=== PATIENT | male | born 1970 | race Asian ===

== ENCOUNTER → 2020-06-16 09:04 | Outpatient (BNVA) | payer BC, SELFPAY | PROVIDERS: Visit Provider Internal Medicine Gastroenterology | DX: Z76.89 Persons encountering health services in other specified circumstances (principal) ==

== ENCOUNTER → 2020-11-03 09:00 | Outpatient (BNVA) | payer BC, SELFPAY | PROVIDERS: Visit Provider Internal Medicine Gastroenterology ==

== ENCOUNTER → 2021-02-09 08:16 | Outpatient (BNVA) | payer BC, SELFPAY | PROVIDERS: Visit Provider Internal Medicine Gastroenterology ==

== ENCOUNTER 2021-05-19 10:35 | Outpatient (REF) | payer BC, SELFPAY ==
[2021-05-24 02:20] LABS: Calprotectin, Fecal 246 mcg/g
== END 2021-05-19 10:36 | disposition home or self-care (01) ==
LOC: HO.LNP 10:35
PROVIDERS: Visit Provider Internal Medicine Gastroenterology
DX: K52.9 Noninfective gastroenteritis and colitis, unspecified (principal)
CPT/HCPCS: 83993

== ENCOUNTER 2021-08-17 07:30 | Outpatient (REF) | payer BC, SELFPAY ==
[2021-08-17 07:48] LABS: MANUAL DIFF FLAG NO
[2021-08-17 08:38] LABS: Basophils Percent Auto 0.7 % (0-2); Eosinophils Absolute Auto 0.3 X10*3/uL (0.0-0.4); Eosinophils Percent Auto 4.9 % (0-4); Hematocrit 45.7 % (42.0-52.0); Hemoglobin 14.8 g/dl (14.0-18.0); Imm Gran Abs Auto 0.02 X10*3/uL (0.00-0.03); Imm Gran Pct Auto 0.3 % (0.0-0.4); Lymphocytes Percent Auto 34.3 % (20-40); Mean Corpuscular HGB Conc 32.4 g/dl (31.0-36.0); Mean Corpuscular Hemoglobin 26.9 pg (27.0-33.0); Mean Corpuscular Volume 82.9 fL (80.0-98.0); Mean Platelet Volume 10.3 fL (9.4-12.4); Monocytes Absolute Auto 0.8 X10*3/uL (0.1-1.2); Monocytes Percent Auto 12.9 % (2-11); Neutrophils Absolute Auto 2.8 x10*3/uL (2.0-8.3); Neutrophils Percent Auto 46.9 % (45-73); Platelet Count 236 X10*3/uL (160-400); Red Blood Count 5.51 X10*6/uL (4.60-5.80); Red Cell Distribution Width 12.4 % (11.0-16.0)
[2021-08-17 09:01] LABS: Alanine Aminotransferase 57 U/L (0-40); Albumin Level 4.4 g/dL (3.5-5.0); Alkaline Phosphatase 102 U/L (39-117); Aspartate Amino Transferase 34 U/L (5-37); Bilirubin Direct 0.3 mg/dL (0.0-0.5); Bilirubin Total 0.7 mg/dL (0.0-1.0); Estimated Glomerular Filt Rate > 60; Total Protein 7.8 g/dL (6.5-8.0)
== END 2021-08-17 07:31 | disposition home or self-care (01) ==
LOC: HO.LAB 07:30
PROVIDERS: Visit Provider Internal Medicine Gastroenterology
DX: K52.9 Noninfective gastroenteritis and colitis, unspecified (principal)
CPT/HCPCS: 36415; 80076; 82565; 85025

== ENCOUNTER 2021-11-17 09:55 | Outpatient (REF) | payer BC, SELFPAY ==
[2021-11-17 11:16] LABS: Alanine Aminotransferase 52 U/L (0-40); Albumin Level 4.4 g/dL (3.5-5.0); Alkaline Phosphatase 109 U/L (39-117); Aspartate Amino Transferase 29 U/L (5-37); Bilirubin Direct 0.2 mg/dL (0.0-0.5); Bilirubin Total 0.6 mg/dL (0.0-1.0); Total Protein 7.7 g/dL (6.5-8.0)
[2021-11-17 11:40] LABS: Vitamin D 25-OH Total 41.4 ng/mL (>30)
== END 2021-11-17 09:56 | disposition home or self-care (01) ==
LOC: HO.LAB 09:55
PROVIDERS: Visit Provider Internal Medicine Gastroenterology
DX: K52.9 Noninfective gastroenteritis and colitis, unspecified (principal)
CPT/HCPCS: 36415; 80076; 82306

== ENCOUNTER 2022-02-19 11:33 | Outpatient (REF) | payer BC, SELFPAY ==
[2022-02-19 11:57] LABS: Hematocrit 46.5 % (42.0-52.0); Hemoglobin 15.1 g/dl (14.0-18.0); Mean Corpuscular HGB Conc 32.5 g/dl (31.0-36.0); Mean Corpuscular Hemoglobin 26.5 pg (27.0-33.0); Mean Corpuscular Volume 81.7 fL (80.0-98.0); Mean Platelet Volume 9.8 fL (9.4-12.4); Platelet Count 264 X10*3/uL (160-400); Red Blood Count 5.69 X10*6/uL (4.60-5.80); Red Cell Distribution Width 12.3 % (11.0-16.0); White Blood Count 7.1 X10*3/uL (4.8-10.8)
[2022-02-19 12:37] LABS: Alanine Aminotransferase 38 U/L (0-40); Albumin Level 4.6 g/dL (3.5-5.0); Alkaline Phosphatase 97 U/L (39-117); Aspartate Amino Transferase 22 U/L (5-37); Bilirubin Direct 0.2 mg/dL (0.0-0.5); Bilirubin Total 0.7 mg/dL (0.0-1.0)
== END 2022-02-19 11:34 | disposition home or self-care (01) ==
LOC: HO.LAB 11:33
PROVIDERS: Visit Provider Internal Medicine Gastroenterology
DX: K52.9 Noninfective gastroenteritis and colitis, unspecified (principal)
CPT/HCPCS: 36415; 80076; 85027

== ENCOUNTER 2022-08-08 14:00 | Outpatient (REF) | payer BC, SELFPAY ==
[2022-08-08 14:42] LABS: Hematocrit 45.7 % (42.0-52.0); Hemoglobin 15.2 g/dl (14.0-18.0); Mean Corpuscular HGB Conc 33.3 g/dl (31.0-36.0); Mean Corpuscular Hemoglobin 26.8 pg (27.0-33.0); Mean Corpuscular Volume 80.6 fL (80.0-98.0); Mean Platelet Volume 10.3 fL (9.4-12.4); Platelet Count 257 X10*3/uL (160-400); Red Blood Count 5.67 X10*6/uL (4.60-5.80); Red Cell Distribution Width 12.4 % (11.0-16.0); White Blood Count 6.1 X10*3/uL (4.8-10.8)
[2022-08-08 15:28] LABS: Alanine Aminotransferase 76 U/L (0-40); Albumin Level 4.5 g/dL (3.5-5.0); Alkaline Phosphatase 110 U/L (39-117); Aspartate Amino Transferase 39 U/L (5-37); Bilirubin Direct 0.3 mg/dL (0.0-0.5); Estimated Glomerular Filt Rate > 60; Total Protein 7.6 g/dL (6.5-8.0)
[2022-08-08 15:53] LABS: Folate > 20.0 ng/mL (> or = 4.0); Vitamin B12 > 2000 pg/mL (200-900)
== END 2022-08-08 14:01 | disposition home or self-care (01) ==
LOC: HO.LAB 14:00
PROVIDERS: Visit Provider Internal Medicine Gastroenterology
DX: K21.9 Gastro-esophageal reflux disease without esophagitis (principal); K52.9 Noninfective gastroenteritis and colitis, unspecified
CPT/HCPCS: 36415; 80076; 82565; 82607; 82746; 85027

== ENCOUNTER → 2022-08-17 09:44 | Outpatient (BNVA) | payer BC, SELFPAY | PROVIDERS: Visit Provider Internal Medicine Gastroenterology | DX: Z13.89 Encounter for screening for other disorder (principal) ==

== ENCOUNTER 2022-09-11 10:42 | Outpatient (REF) | payer BC, SELFPAY ==
[2022-09-11 12:10] LABS: Alanine Aminotransferase 78 U/L (0-40); Albumin Level 4.7 g/dL (3.5-5.0); Alkaline Phosphatase 111 U/L (39-117); Aspartate Amino Transferase 38 U/L (5-37); Bilirubin Direct < 0.2 mg/dL (0.0-0.5); Bilirubin Total 0.8 mg/dL (0.0-1.0)
== END 2022-09-11 10:43 | disposition home or self-care (01) ==
LOC: HO.LAB 10:42
PROVIDERS: Visit Provider Internal Medicine Gastroenterology
DX: K52.9 Noninfective gastroenteritis and colitis, unspecified (principal); R79.89 Other specified abnormal findings of blood chemistry
CPT/HCPCS: 36415; 80076

== ENCOUNTER 2022-11-08 09:10 | Outpatient (REF) | payer BC, SELFPAY ==
[2022-11-08 10:37] LABS: Alanine Aminotransferase 41 U/L (0-40); Albumin Level 4.3 g/dL (3.5-5.0); Alkaline Phosphatase 85 U/L (39-117); Aspartate Amino Transferase 25 U/L (5-37); Bilirubin Direct 0.2 mg/dL (0.0-0.5); Bilirubin Total 0.6 mg/dL (0.0-1.0); Total Protein 7.4 g/dL (6.5-8.0)
[2022-11-15 21:44] LABS: Calprotectin, Fecal 7 mcg/g
== END 2022-11-08 09:11 | disposition home or self-care (01) ==
LOC: HO.LAB 09:10
PROVIDERS: Visit Provider Internal Medicine Gastroenterology
DX: K52.9 Noninfective gastroenteritis and colitis, unspecified (principal); R79.89 Other specified abnormal findings of blood chemistry
CPT/HCPCS: 36415; 80076; 83993

== ENCOUNTER → 2022-12-27 08:57 | Outpatient (BNVA) | payer BC, SELFPAY | PROVIDERS: Visit Provider Internal Medicine Gastroenterology ==

== ENCOUNTER 2023-06-05 13:40 | Outpatient (REF) | payer BC, SELFPAY ==
[2023-06-05 14:16] LABS: Hematocrit 45.5 % (42.0-52.0); Hemoglobin 14.8 g/dl (14.0-18.0); Mean Corpuscular HGB Conc 32.5 g/dl (31.0-36.0); Mean Corpuscular Hemoglobin 26.6 pg (27.0-33.0); Mean Corpuscular Volume 81.7 fL (80.0-98.0); Platelet Count 250 X10*3/uL (160-400); Red Blood Count 5.57 X10*6/uL (4.60-5.80); Red Cell Distribution Width 12.4 % (11.0-16.0); White Blood Count 5.9 X10*3/uL (4.8-10.8)
[2023-06-05 14:48] LABS: Alanine Aminotransferase 42 U/L (0-40); Albumin Level 4.3 g/dL (3.5-5.0); Alkaline Phosphatase 94 U/L (39-117); Aspartate Amino Transferase 25 U/L (5-37); Bilirubin Direct 0.1 mg/dL (0.0-0.5); Bilirubin Total 0.5 mg/dL (0.0-1.0); Blood Urea Nitrogen 11 mg/dL (9-16); Estimated Glomerular Filt Rate > 60; Total Protein 7.8 g/dL (6.5-8.0)
== END 2023-06-05 13:41 | disposition home or self-care (01) ==
LOC: HO.LAB 13:40
PROVIDERS: Visit Provider Internal Medicine Gastroenterology
DX: K52.9 Noninfective gastroenteritis and colitis, unspecified (principal)
CPT/HCPCS: 36415; 80076; 82565; 84520; 85027

== ENCOUNTER 2023-06-13 09:31 | Outpatient (AMB) | payer BC, SELFPAY ==
--- NOTE | 2023-06-13 09:34 | A.OFFVIS_ITS ---
Intake Vital Signs 06/13/23 09:45 Height 5 ft 4 in Weight 132 lb BMI 22.7 BP 112/58 L Blood Pressure Location Lt brachial Position Sitting Pulse 70 Intake Visit Reasons: 6 month follow up Intake Note: Patient follow up for Elevated FLTs Patient cc: abdominal pain more on the left side. Denies any other GI issues. Hand Grinder Required: No Accompanied by: Self / Same As Patient Allergies No Known Allergies Allergy (Verified 06/13/23 09:41) Medication List - Last Reconciled 06/13/23 by Madiha Mercer MD albuterol sulfate 90 mcg/actuation 2 puffs inhalation Q6H PRN atorvastatin 10 mg PO DAILY cholecalciferol (vitamin D3) 50 mcg PO DAILY cyclobenzaprine 5 - 10 mg PO BEDTIME PRN fluticasone propionate 50 mcg/actuation sprays intranasal hydroxyzine HCl 10 mg PO TID PRN Lactobacillus acidophilus (Acidophilus chewable tablet) 1 tab PO DAILY meclizine 25 mg PO TID PRN melatonin 3 mg PO BEDTIME PRN mesalamine 4.8 grams (4 x 1.2 gram) PO DAILY 90 days rye grass extract-quercetin 500-250 mg (Prostate PQ) tabs PO HPI 6 month follow up HPI Details GI clinic visit for this 52-year-old male for FU of IBD and elevated LFTs. ?LABS:? From [facility] were reviewed: ? 06/14/20 WBC 6.2, HEMOGLOBIN 15.1, HEMATOCRIT 45.1 PLATELETS 242 ? BUN 14, CREATININE 1.09, ALBUMIN 4.1, BILIRUBIN 0.5, ALKALINE PHOSPHATASE 112, AST 37, ALT SLIGHTLY ELEVATED AT 57 (56 IN 07/20) ? LABS IN [facility]: 07/08/19 reviewed ? ESR and CRP have been negative in the past. ? Stool was negative for C diff antigen. ?ENDOSCOPIC STUDIES: NOVEMBER 2018 COLONOSCOPY SHOWED: ? Patchy erythema with aphthoid ulcers in the cecum, TC and distal rectum - likely resolving colitis. ? Biopsies obtained as mentioned above. Since patient has patchy inflammation, he ? likely has Crohn's disease versus partially treated UC. ? A few aphthoid ulcers in the TI likely back wash ileitis evrsus Crohn's disease ? - biopsied. ? Moderate hemorrhoids on retroflexed exam. ? Plan: ? Await pathology results ? Change Asacol to Lialda 4.8 gms once daily ? Patient has an appointment on 12/26/18 in the GI Clinic with Madiha Mercer M.D. ? Start surveillance colonoscopy for colorectal cancer screening in 5 years if no dysplasia on biopsies. ? A. Small bowel, biopsy: Focal active ileitis; no chronic injury seen. ? B. Colon, cecum, biopsy: Chronic, mildly active, colitis. ? C. Colon, ascending, biopsy: Colonic mucosa within normal limits. ? D. Colon, left, biopsy: Colonic mucosa within normal limits. 07/23/2017: Colonoscopy report from [facility] (in the? [place]) was reviewed: ?Focal ulceration at the terminal ileum.? Diffusely edematous mucosa with multiple mucosal breaks with exudates was noted? in the cecum and 40 cms from the anal verge down to the? rectum. ?Hemorrhoida vessels above the dentate line were? engorged. ?Biopsies from TI showed Acute and chronic ileitis with focal? area suspicious for granulomatous inflammation. ?Biopsies from the? colon showed chronic non-specific colitis. ?Stool test was negative for? O & P and positive for ABC and occult blood. ?TODAY'S VISIT Patient cc: abdominal pain more on the left side. Denies any other GI issues. Had dizziness and chest pain Evaluated by a stress test which was negative Still has intermittent chest pain which resolves after he eats Taking atorvastatin, mesalamine and supplements Notes intermittent LLQ pain, has left abd discomfort when he moves his left leg. Has a soft BM daily. Notes some blood once in a while if he eats something spicy Taking Mesalamine 2 cap in the morning and one at night PAST VISIT: Pt denies diarrhea. Taking mesalamine 2 tab in the am and one tab at bedtime Sometimes he feels pain when he is hungry. He had some food with coconut milk and stomach did not feel good (did not have diarrhea) he notes some pain on the left side when he twists his body and pt was reassured that it is likely muscular pain. Stool is yellow, soft and formed and has one BM daily in the morning. Not taking TUMS for acid reflux. Had one episode when he did not have a BM x 1 day. Had a loose BM the following day. Doing good. Sometimes has a burning pain on the left side. Taking melatonin at bedtime to help him sleep at night. Stopped diphenhydramine due to increase in blood pressure Feels Ok without diarrhea or constipation. Has a soft BM one to 2 times a days. 01/29/22 he felt dizzy after lifting a hea vy pipe. He was seen at [facility] and being evaluated by Neurology specializing in dizziness (has an appt in May, 2022) Seen by ENT and diagnosed with a balance problem Has an appt with PT on 03/07/22 He was on leave and returned to work today. Taking Vitamin D 2000 units daily. Has been taking Mesalamine 4 tablets daily since earlier this year. Taking a MVI prescribed by the urologist. Doing good. Feels pain if he is hungry. Sometimes takes TUMs for acid Denies diarrhea or constipation. Sometimes feels hungry and feels his stomach is boiling. Taking Mesalamine 4 tab daily x past 4 months. Had dizziness a few days ago and had a low blood pressure. January, - He was Hospitalized at [facility] ([place]) with dizziness. Evaluated with a CT scan and MRI x 2 and diagnosed with Migraine MCDONNELL's Under increased stress since he bought a house and & daughter moved to the from the [facility]. Taking 4 tablets of Lialda daily and having one BM a day without blood. Dizziness attributed to eye problems. Stopped taking Vitamin D since he is taking an MVI with Vitamin D Taking Lialda every other day for the past 3 months and doing well - feels normal. Avoiding spicy foods. Feels a little pain if he is hungry Having one BM daily. Had COVID vaccine ([employer]) a few? days ago ?Patient cc: abdominal pain on and off, dizziness and pain on back of his head. Denies any other GI symptoms. ? Has a BM when he wakes up. ? Has breakfast followed by another BM, then Ok the rest of the day. ? Notes abdominal pain only when he is hungry and eats a little bit late. ? Is fine after he eats some bread. ? Notes some rectal bleeding after he took aspirin - attributes to hemorrhoids. ? Has intermittent elevation of blood pressure (140/93) ? Seen in the ER yesterday with neurological symptoms - normal EKG and?MRI [facility] Medical History IBD (inflammatory bowel disease) Surgical History History of colonoscopy Family History Father No problems noted. Mother Family history of high blood pressure Social History Alcohol intake: never Review of Systems Const All systems reviewed & are unremarkable except as noted in HPI and below Physical Exam Vital Signs: Last Vital Signs Pulse 70 06/13/23 09:45 BP 112/58 L 06/13/23 09:45 BMI result Body Mass Index 22.7 Const General: healthy appearing and no acute distress Nutritional Appearance: average body habitus Orientation/consciousness: patient oriented x3 Limitations: no limitations HEENT Head: Yes normal to inspection Ears: hearing grossly normal bilaterally Eyes Sclerae: sclerae normal Pupils: Equal, round and reactive pupils present Neck Neck: Yes normal visual inspection Chest Chest palpation & inspection: normal inspection of the chest Resp Effort & Inspection: normal respiratory effort Auscultation: clear to auscultation bilaterally Cardio Palpation: normal PMI Rate: regular rate Rhythm: regular rhythm Heart sounds: S1 normal heart sound present, S2 normal heart sound present and no murmurs GI Palpation (GI): Soft to palpation, nontender and No hepatosplenomegaly present Auscultation: normal bowel sounds Rectal Exam - Male: Yes deferred Skin General skin exam: no rashes or lesions noted Neuro General: patient oriented x3, gait normal and moves all extremities Cranial nerves: Yes Equal, round and reactive pupils present Psych Appearance: grossly normal Mental Status: mental status grossly normal Assessment & Plan Assessment & Plan (1) Elevated LFTs: Code(s): R79.89 - Other specified abnormal findings of blood chemistry (2) GERD (gastroesophageal reflux disease): Code(s): K21.9 - Gastro-esophageal reflux disease without esophagitis (3) IBD (inflammatory bowel disease): Code(s): K52.9 - Noninfective gastroenteritis and colitis, unspecified (4) Left sided abdominal pain: Code(s): R10.9 - Unspecified abdominal pain Plan 52 year old [place] male with GERD and asthma diagnosed with colitis on colonoscopy in Jul, 2017 in the [facility]. Patient notes improvement in his symptoms with Mesalamine and prednisone and recurrent pain and diarrhea when he stops these medications. Colonoscopy in 11/2018 showed patchy inflammation of the TI, cecum and left colon and distal rectum suggestive of Crohn's disease versus partially treated UC with backwash ileitis. Biopsies showed Focal active ileitis; no chronic injury seen and chronic, mildly active, colitis without granulomas. Labs revealed normal sed rate and CRP. Fecal calprotectin was elevated at 135.8. IBD serologies were not consistent with IBD. Pt notes association of abdominal pain with stress suggesting he may have associated IBS. Pt was switched to high dose Lialda 4.8 grams daily(due to coverage issues for Asacol) with improvement in symptoms of colitis. Patient had tachycardia, palpitations and elevated LFTs felt to be due to high- dose Lialda and dose was decreased. He was advised to start azathioprine 50 mg once a day and did not start taking it due to concern for side effects. He notes improvement in his symptoms and resolution of diarrhea and rectal bleeding. He complains of headache and dizziness, which resolved after he decreased Lialda to one tablet a day - MCDONNELL due to Migraine & dizziness due to eye problems. He changed his diet and is taking a healthier diet with avocados and bananas. Being worked up for dizziness. Pt is taking Lialda 4 tablets daily at present and labs showed slightly elevated transaminases. 08/17/22 He was advised to decrease dose to Lialda to 3 tablets daily and Repeat Labs in 1?month . 12/27/22 Pt advised to continue on Lialda 2 tablets in the morning and 1 at night and have repeat labs in 6 months 06/13/23 Notes some blood once in a while if he eats something spicy Taking Mesalamine 2 cap in the morning and one at night FU clinic or TV appt in 6 months.? Orders: Orders Vitamin B12 06/13/23 K52.9 - Noninfective gastroenteritis and colitis, unspecified Liver Panel 06/13/23 K52.9 - Noninfective gastroenteritis and colitis, unspecified C Reactive Protein 06/13/23 K52.9 - Noninfective gastroenteritis and colitis, unspecified Complete Blood Count Auto Diff 06/13/23 K52.9 - Noninfective gastroenteritis and colitis, unspecified Vitamin D 25-OH Total 06/13/23 K52.9 - Noninfective gastroenteritis and colitis, unspecified Medications: New dicyclomine 20 mg PO TID 30 days PRN 30 tabs 2RF intermittent abdominal pain R10.9 - Unspecified abdominal pain, R79.89 - Other specified abnormal findings of blood chemistry Coding Level of Care Code Est Pt Level 4 (11158) Diagnoses Elevated LFTs R79.89 GERD (gastroesophageal reflux disease) K21.9 IBD (inflammatory bowel disease) K52.9 Left sided abdominal pain R10.9 Time Spent (min) 28
[2023-06-13 09:45] VITALS: BP 112/58; PULSE 70; BMI 22.7
== END 2023-06-13 10:21 | disposition home or self-care (01) ==
PROVIDERS: Visit Provider Internal Medicine Gastroenterology
DX: R79.89 Other specified abnormal findings of blood chemistry (principal); K21.9 Gastro-esophageal reflux disease without esophagitis; K52.9 Noninfective gastroenteritis and colitis, unspecified; R10.9 Unspecified abdominal pain
CPT/HCPCS: 99214

== ENCOUNTER → 2023-06-13 09:31 | Outpatient (BNVA) | payer BC, SELFPAY | PROVIDERS: Visit Provider Internal Medicine Gastroenterology ==

== ENCOUNTER 2023-12-17 14:32 | Outpatient (REF) | payer BC, SELFPAY ==
[2023-12-17 14:52] LABS: MANUAL DIFF FLAG NO
[2023-12-17 15:05] LABS: Basophils Percent Auto 0.6 % (0-2); Eosinophils Absolute Auto 0.2 X10*3/uL (0.0-0.4); Hematocrit 44.8 % (42.0-52.0); Hemoglobin 14.9 g/dl (14.0-18.0); Imm Gran Abs Auto 0.04 X10*3/uL (0.00-0.03); Imm Gran Pct Auto 0.6 % (0.0-0.4); Lymphocytes Percent Auto 31.8 % (20-40); Mean Corpuscular HGB Conc 33.3 g/dl (31.0-36.0); Mean Corpuscular Hemoglobin 26.8 pg (27.0-33.0); Mean Corpuscular Volume 80.7 fL (80.0-98.0); Mean Platelet Volume 10.2 fL (9.4-12.4); Monocytes Absolute Auto 0.6 X10*3/uL (0.1-1.2); Neutrophils Absolute Auto 3.5 x10*3/uL (2.0-8.3); Platelet Count 241 X10*3/uL (160-400); Red Blood Count 5.55 X10*6/uL (4.60-5.80); Red Cell Distribution Width 13.1 % (11.0-16.0); White Blood Count 6.4 X10*3/uL (4.8-10.8)
[2023-12-17 15:38] LABS: Alanine Aminotransferase 43 U/L (0-40); Albumin Level 4.2 g/dL (3.5-5.0); Alkaline Phosphatase 110 U/L (39-117); Aspartate Amino Transferase 29 U/L (5-37); Bilirubin Direct 0.1 mg/dL (0.0-0.5); Bilirubin Total 0.4 mg/dL (0.0-1.0); C Reactive Protein 0.15 mg/dL (< or = 0.50); Total Protein 7.9 g/dL (6.5-8.0)
[2023-12-17 16:19] LABS: Vitamin B12 > 2000 pg/mL (200-900)
== END 2023-12-17 14:33 | disposition home or self-care (01) ==
LOC: HO.LAB 14:32
PROVIDERS: PCP Family Medicine; Visit Provider Internal Medicine Gastroenterology
DX: K52.9 Noninfective gastroenteritis and colitis, unspecified (principal)
CPT/HCPCS: 36415; 80076; 82306; 82607; 85025; 86140

== ENCOUNTER 2023-12-19 09:42 | Outpatient (AMB) | payer BC, SELFPAY ==
--- NOTE | 2023-12-19 09:43 | A.OFFVIS_ITS ---
Intake Visit Reasons: 6 month follow up Intake Note: Ziggy presents as a video call today for a 6 month follow up. CC: States that he is feeling good and not having any concerns at this time. Allergies No Known Allergies Allergy (Verified 12/19/23 09:43) Medication List - Last Reconciled 12/19/23 by Madiha Mercer MD albuterol sulfate 90 mcg/actuation 2 puffs inhalation Q6H PRN cholecalciferol (vitamin D3) 50 mcg PO DAILY dicyclomine 20 mg PO TID PRN 30 days fluticasone propionate 50 mcg/actuation sprays intranasal Lactobacillus acidophilus (Acidophilus chewable tablet) 1 tab PO DAILY meclizine 25 mg PO TID PRN melatonin 3 mg PO BEDTIME PRN mesalamine 4.8 grams (4 x 1.2 gram) PO DAILY rye grass extract-quercetin 500-250 mg (Prostate PQ) tabs PO triamcinolone acetonide 0.1% 1 appl topical BID-TID HPI HPI 6 month follow up: Details: Telemedicine visit for this 53-year-old male for FU of IBD and elevated LFTs. ?LABS:? From [facility] were reviewed: ? 06/14/20 WBC 6.2, HEMOGLOBIN 15.1, HEMATOCRIT 45.1 PLATELETS 242 ? BUN 14, CREATININE 1.09, ALBUMIN 4.1, BILIRUBIN 0.5, ALKALINE PHOSPHATASE 112, AST 37, ALT SLIGHTLY ELEVATED AT 57 (56 IN 07/20) ? LABS IN [facility]: 07/08/19 reviewed ? ESR and CRP have been negative in the past. ? Stool was negative for C diff antigen. ?ENDOSCOPIC STUDIES: NOVEMBER 2018 COLONOSCOPY SHOWED: ? Patchy erythema with aphthoid ulcers in the cecum, TC and distal rectum - likely resolving colitis. ? Biopsies obtained as mentioned above. Since patient has patchy inflammation, he ? likely has Crohn's disease versus partially treated UC. ? A few aphthoid ulcers in the TI likely back wash ileitis evrsus Crohn's disease ? - biopsied. ? Moderate hemorrhoids on retroflexed exam. ? Plan: ? Await pathology results ? Change Asacol to Lialda 4.8 gms once daily ? Patient has an appointment on 12/26/18 in the GI Clinic with Madiha Mercer M.D. ? Start surveillance colonoscopy for colorectal cancer screening in 5 years if no dysplasia on biopsies. ? A. Small bowel, biopsy: Focal active ileitis; no chronic injury seen. ? B. Colon, cecum, biopsy: Chronic, mildly active, colitis. ? C. Colon, ascending, biopsy: Colonic mucosa within normal limits. ? D. Colon, left, biopsy: Colonic mucosa within normal limits. 07/23/2017: Colon[facility] was reviewed:?Focal ulceration at the terminal ileum.? Diffusely edematous mucosa with multiple mucosal breaks with exudates was noted? in the cecum and 40 cms from the anal verge down to the? rectum. ?Hemorrhoida vessels above the dentate line were? engorged. ?Biopsies from TI showed Acute and chronic ileitis with focal? area suspicious for granulomatous inflammation. ?Biopsies from the? colon showed chronic non-specific colitis. ?Stool test was negative for? O & P and positive for ABC and occult blood. ?TODAY'S VISIT CC: States that he is feeling good and not having any concerns at this time. On November 19 attended his sister's BD and overate and felt bad in the stomach and took liquids x 1 day and felt fine Doing Ok since then. Occasional left sided abdominal pain and sometimes on the right side. Lab results reviewed - normal except minimal increase in ALT to 43 and advised to monitor Stopped taking atorvastatin 6 months ago due to dizziness and fatigue and feeling better. PAST VISIT: Had dizziness and chest pain Evaluated by a stress test which was negative Still has intermittent chest pain which resolves after he eats Taking atorvastatin, mesalamine and supplements Notes intermittent LLQ pain, has left abd discomfort when he moves his left leg. Has a soft BM daily. Notes some blood once in a while if he eats something spicy Taking Mesalamine 2 cap in the morning and one at night Pt denies diarrhea. Taking mesalamine 2 tab in the am and one tab at bedtime Sometimes he feels pain when he is hungry. He had some food with coconut milk and stomach did not feel good (did not have diarrhea) he notes some pain on the left side when he twists his body and pt was reassured that it is likely muscular pain. Stool is yellow, soft and formed and has one BM daily in the morning. Not taking TUMS for acid reflux. Had one episode when he did not have a BM x 1 day. Had a loose BM the following day. Doing good. Sometimes has a burning pain on the left side. Taking melatonin at bedtime to help him sleep at night. Stopped diphenhydramine due to increase in blood pressure Feels Ok without diarrhea or constipation. Has a soft BM one to 2 times a days. 01/29/22 he felt dizzy after lifting a heavy pipe.He was seen at [facility] and being evaluated by Neurology specializing in dizziness (has an appt in May, 2022) Seen by ENT and diagnosed with a balance problem Has an appt with PT on 03/07/22 He was on leave and returned to work today. Taking Vitamin D 2000 units daily. Has been taking Mesalamine 4 tablets daily since earlier this year. Taking a MVI prescribed by the urologist. Doing good. Feels pain if he is hungry. Sometimes takes TUMs for acid Denies diarrhea or constipation. Sometimes feels hungry and feels his stomach is boiling. Taking Mesalamine 4 tab daily x past 4 months. Had dizziness a few days ago and had a low blood pressure. January, - He was Hospitalized at [facility] ([place]) with dizziness. Evaluated with a CT scan and MRI x 2 and diagnosed with Migraine MCDONNELL's Under increased stress since he bought a house and & daughter moved to the from the [facility]. Taking 4 tablets of Lialda daily and having one BM a day without blood. Dizziness attributed to eye problems. Stopped taking Vitamin D since he is taking an MVI with Vitamin D Taking Lialda every other day for the past 3 months and doing well - feels normal. Avoiding spicy foods. Feels a little pain if he is hungry Having one BM daily. Had COVID vaccine ([facility]) a few? days ago ?Patient cc: abdominal pain on and off, dizziness and pain on back of his head. Denies any other GI symptoms. ? Has a BM when he wakes up. ? Has breakfast followed by another BM, then Ok the rest of the day. ? Notes abdominal pain only when he is hungry and eats a little bit late. ? Is fine after he eats some bread. ? Notes some rectal bleeding after he took aspirin - attributes to hemorrhoids. ? Has intermittent elevation of blood pressure (140/93) ? Seen in the ER yesterday with neurological symptoms - normal EKG and?MRI [facility] Medical History IBD (inflammatory bowel disease) Surgical History History of colonoscopy Family History Father No problems noted. Mother Family history of high blood pressure Social History Alcohol intake: never Telehealth Telehealth Telehealth Platform: Telephone Location of provider rendering services: practice address Location of patient: address on file Patient Identification confirmed using: Name, : Yes Telehealth method: voice only Patient verbally consented to treatment: Yes Patient verbally consented to billing insurance company: Yes Patient informed of any privacy concerns related to visit: Yes Assessment & Plan Assessment & Plan (1) IBD (inflammatory bowel disease): Code(s): K52.9 - Noninfective gastroenteritis and colitis, unspecified Category: Medical (2) GERD (gastroesophageal reflux disease): Code(s): K21.9 - Gastro-esophageal reflux disease without esophagitis Category: Medical (3) Elevated LFTs: Code(s): R79.89 - Other specified abnormal findings of blood chemistry Category: Medical (4) Left sided abdominal pain: Code(s): R10.9 - Unspecified abdominal pain Category: Medical Plan 53 year old [place]-Am male with GERD and asthma diagnosed with colitis on colonoscopy in Jul, 2017 in the [facility]. Patient notes improvement in his symptoms with Mesalamine and prednisone and recurrent pain and diarrhea when he stops these medications. Colonoscopy in 11/2018 showed patchy inflammation of the TI, cecum and left colon and distal rectum suggestive of Crohn's disease versus partially treated UC with backwash ileitis. Biopsies showed Focal active ileitis; no chronic injury seen and chronic, mildly active, colitis without granulomas. Labs revealed normal sed rate and CRP. Fecal calprotectin was elevated at 135.8. IBD serologies were not consistent with IBD. Pt notes association of abdominal pain with stress suggesting he may have associated IBS. Pt was switched to high dose Lialda 4.8 grams daily(due to coverage issues for Asacol) with improvement in symptoms of colitis. Patient had tachycardia, palpitations and elevated LFTs felt to be due to high- dose Lialda and dose was decreased. He was advised to start azathioprine 50 mg once a day and did not start taking it due to concern for side effects. He notes improvement in his symptoms and resolution of diarrhea and rectal bleeding. He complains of headache and dizziness, which resolved after he decreased Lialda to one tablet a day - MCDONNELL due to Migraine & dizziness due to eye problems. He changed his diet and is taking a healthier diet with avocados and bananas. Being worked up for dizziness. Pt is taking Lialda 4 tablets daily at present and labs showed slightly elevated transaminases. 08/17/22 He was advised to decrease dose to Lialda to 3 tablets daily and Repeat Labs in 1?month . 10/2022 calprotectin was 7. 12/27/22 Pt advised to continue on Lialda 2 tablets in the morning and 1 at night and have repeat labs in 6 months 06/13/23 Notes some blood once in a while if he eats something spicy Taking Mesalamine 2 cap in the morning and one at night FU clinic appt in 6 months (to have labs prior to next clinic visit) Orders: Orders C Reactive Protein 06/01/24 K52.9 - Noninfective gastroenteritis and colitis, unspecified Complete Blood Count no Diff 06/01/24 K52.9 - Noninfective gastroenteritis and colitis, unspecified Liver Panel 06/01/24 K52.9 - Noninfective gastroenteritis and colitis, unspecified Coding Level of Care Code Tele Est Pt Level 3 (10351) Diagnoses IBD (inflammatory bowel disease) K52.9 GERD (gastroesophageal reflux disease) K21.9 Elevated LFTs R79.89 Left sided abdominal pain R10.9 Time Spent (min) 14
== END 2023-12-19 13:10 | disposition home or self-care (01) ==
LOC: HO.HGI 09:42
PROVIDERS: PCP Family Medicine; Visit Provider Internal Medicine Gastroenterology
DX: K52.9 Noninfective gastroenteritis and colitis, unspecified (principal); K21.9 Gastro-esophageal reflux disease without esophagitis; R74.01 Elevation of levels of liver transaminase levels
CPT/HCPCS: 99442

== ENCOUNTER → 2023-12-19 09:42 | Outpatient (BNVA) | payer BC, SELFPAY | PROVIDERS: PCP Family Medicine; Visit Provider Internal Medicine Gastroenterology ==

== ENCOUNTER → 2024-02-20 13:58 | Outpatient (BNVA) | payer BC, SELFPAY | PROVIDERS: PCP Family Medicine; Visit Provider Internal Medicine Gastroenterology ==

== ENCOUNTER 2024-02-21 09:19 | Outpatient (REF) | payer BC, SELFPAY ==
[2024-03-04 22:14] LABS: Calprotectin, Fecal 6 mcg/g
== END 2024-02-21 09:20 | disposition home or self-care (01) ==
LOC: HO.LNP 09:19
PROVIDERS: Visit Provider Internal Medicine Gastroenterology
DX: K52.9 Noninfective gastroenteritis and colitis, unspecified (principal)
CPT/HCPCS: 83993

== ENCOUNTER 2024-06-18 10:43 | Outpatient (AMB) | payer BC, SELFPAY ==
--- NOTE | 2024-06-18 10:44 | MHC.OFFVIS ---
Intake Visit Reasons: 6 month follow up Intake Note: Patient telehealth follow up for Elevated LFTs and lab results. Patient cc: abdominal pain with hungry.Denies any other GI issues for today. 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 Allergies No Known Allergies Allergy (Verified 06/18/24 10:43) Medication List - Last Reconciled 06/18/24 by Madiha Mercer MD albuterol sulfate 90 mcg/actuation 2 puffs inhalation Q6H PRN cholecalciferol (vitamin D3) 50 mcg PO DAILY dicyclomine 20 mg PO TID PRN 30 days fluticasone propionate 50 mcg/actuation sprays intranasal Lactobacillus acidophilus (Acidophilus chewable tablet) 1 tab PO DAILY meclizine 25 mg PO TID PRN melatonin 3 mg PO BEDTIME PRN mesalamine 4.8 grams (4 x 1.2 gram) PO DAILY rye grass extract-quercetin 500-250 mg (Prostate PQ) tabs PO triamcinolone acetonide 0.1% 1 appl topical BID-TID HPI HPI 6 month follow up: Details: Telemedicine visit for this 53-year-old male for FU of IBD and elevated LFTs. ?TODAY'S VISIT Patient cc: abdominal pain with hungry. I feel good, I have not had any diarrhea Can have intermittent abdominal pain when he is hungry. Abd pain resolves after he eats. Has a soft BM every morning without any blood. Has a fungal infection in his fingers and advised Terbinafen 250 mg once a day - informed there is no interaction with mesalamine He will need LFTs checked during treatment by Dermatology PAST VISIT: Patient cc: left middle abdominal pain, denies any other GI issues. Went to her sister's house last week and was painting her window Meal pattern changed Noted constant 8/10 LLQ and sometimes RLQ pain Notes increased pain when he wakes up and radiates to the back. Unable to walk straight for a few days Abd pain has improved to 4/10 Pain is getting better BMs are normal - denies diarrhea or rectal bleeding Seen by PCP and had labs and Abd US. On November 19 attended his sister's BD and overate and felt bad in the stomach and took liquids x 1 day and felt fine Doing Ok since then. Occasional left sided abdominal pain and sometimes on the right side. Lab results reviewed - normal except minimal increase in ALT to 43 and advised to monitor Stopped taking atorvastatin 6 months ago due to dizziness and fatigue and feeling better. Had dizziness and chest pain Evaluated by a stress test which was negative Still has intermittent chest pain which resolves after he eats Taking atorvastatin, mesalamine and supplements Notes intermittent LLQ pain, has left abd discomfort when he moves his left leg. Has a soft BM daily. Notes some blood once in a while if he eats something spicy Taking Mesalamine 2 cap in the morning and one at night Pt denies diarrhea. Taking mesalamine 2 tab in the am and one tab at bedtime Sometimes he feels pain when he is hungry. He had some food with coconut milk and stomach did not feel good (did not have diarrhea) he notes some pain on the left side when he twists his body and pt was reassured that it is likely muscular pain. Stool is yellow, soft and formed and has one BM daily in the morning. Not taking TUMS for acid reflux. Had one episode when he did not have a BM x 1 day. Had a loose BM the following day. Doing good. Sometimes has a burning pain on the left side. Taking melatonin at bedtime to help him sleep at night. Stopped diphenhydramine due to increase in blood pressure Feels Ok without diarrhea or constipation. Has a soft BM one to 2 times a days. 01/29/22 he felt dizzy after lifting a heavy pipe.He was seen at [facility] and being evaluated by Neurology specializing in dizziness (has an appt in May, 2022) Seen by ENT and diagnosed with a balance problem Has an appt with PT on 03/07/22 He was on leave and returned to work today. Taking Vitamin D 2000 units daily. Has been taking Mesalamine 4 tablets daily since earlier this year. Taking a MVI prescribed by the urologist. Doing good. Feels pain if he is hungry. Sometimes takes TUMs for acid Denies diarrhea or constipation. Sometimes feels hungry and feels his stomach is boiling. Taking Mesalamine 4 tab daily x past 4 months. Had dizziness a few days ago and had a low blood pressure. January, - He was Hospitalized at [facility] ([place]) with dizziness. Evaluated with a CT scan and MRI x 2 and diagnosed with Migraine MCDONNELL's Under increased stress since he bought a house and & daughter moved to the from the [facility]. Taking 4 tablets of Lialda daily and having one BM a day without blood. Dizziness attributed to eye problems. Stopped taking Vitamin D since he is taking an MVI with Vitamin D Taking Lialda every other day for the past 3 months and doing well - feels normal. Avoiding spicy foods. Feels a little pain if he is hungry Having one BM daily. Had COVID vaccine ([employer]) a few? days ago ?Patient cc: abdominal pain on and off, dizziness and pain on back of his head. Denies any other GI symptoms. ? Has a BM when he wakes up. ? Has breakfast followed by another BM, then Ok the rest of the day. ? Notes abdominal pain only when he is hungry and eats a little bit late. ? Is fine after he eats some bread. ? Notes some rectal bleeding after he took aspirin - attributes to hemorrhoids. ? Has intermittent elevation of blood pressure (140/93) ? Seen in the ER yesterday with neurological symptoms - normal EKG and?MRI LABS:? From [facility] were reviewed: ? 06/14/20 WBC 6.2, HEMOGLOBIN 15.1, HEMATOCRIT 45.1 PLATELETS 242 ? BUN 14, CREATININE 1.09, ALBUMIN 4.1, BILIRUBIN 0.5, ALKALINE PHOSPHATASE 112, AST 37, ALT SLIGHTLY ELEVATED AT 57 (56 IN 07/20) ? LABS IN [facility]: 07/08/19 reviewed ? ESR and CRP have been negative in the past. ? Stool was negative for C diff antigen. ?ENDOSCOPIC STUDIES: NOVEMBER 2018 COLONOSCOPY SHOWED: ? Patchy erythema with aphthoid ulcers in the cecum, TC and distal rectum - likely resolving colitis. ? Biopsies obtained as mentioned above. Since patient has patchy inflammation, he ? likely has Crohn's disease versus partially treated UC. ? A few aphthoid ulcers in the TI likely back wash ileitis evrsus Crohn's disease ? - biopsied. ? Moderate hemorrhoids on retroflexed exam. ? Plan: ? Await pathology results ? Change Asacol to Lialda 4.8 gms once daily ? Patient has an appointment on 12/26/18 in the GI Clinic with Madiha Mercer M.D. ? Start surveillance colonoscopy for colorectal cancer screening in 5 years if no dysplasia on biopsies. ? A. Small bowel, biopsy: Focal active ileitis; no chronic injury seen. ? B. Colon, cecum, biopsy: Chronic, mildly active, colitis. ? C. Colon, ascending, biopsy: Colonic mucosa within normal limits. ? D. Colon, left, biopsy: Colonic mucosa within normal limits. 07/23/2017: [facility]:?Focal ulceration at the terminal ileum.? Diffusely edematous mucosa with multiple mucosal breaks with exudates was noted? in the cecum and 40 cms from the anal verge down to the? rectum. ?Hemorrhoida vessels above the dentate line were? engorged. ?Biopsies from TI showed Acute and chronic ileitis with focal? area suspicious for granulomatous inflammation. ?Biopsies from the? colon showed chronic non-specific colitis. ?Stool test was negative for? O & P and positive for ABC and occult blood. [facility] Medical History IBD (inflammatory bowel disease) Surgical History History of colonoscopy Family History Father No problems noted. Mother Family history of high blood pressure Social History Alcohol intake: never Review of Systems Const All systems reviewed & are unremarkable except as noted in HPI and below Telehealth Telehealth Telehealth Platform: Telephone Location of provider rendering services: practice address Location of patient: address on file Patient Identification confirmed using: Name, : Yes Telehealth method: voice only Patient verbally consented to treatment: Yes Patient verbally consented to billing insurance company: Yes Patient informed of any privacy concerns related to visit: Yes Minutes spent on Phone/Video with Pt.: 12 Assessment & Plan Assessment & Plan (1) IBD (inflammatory bowel disease): Code(s): K52.9 - Noninfective gastroenteritis and colitis, unspecified Category: Medical (2) GERD (gastroesophageal reflux disease): Code(s): K21.9 - Gastro-esophageal reflux disease without esophagitis Category: Medical (3) Elevated LFTs: Code(s): R79.89 - Other specified abnormal findings of blood chemistry Category: Medical (4) Left sided abdominal pain: Code(s): R10.9 - Unspecified abdominal pain Category: Medical (5) Gallbladder polyp: Code(s): K82.4 - Cholesterolosis of gallbladder Category: Medical Plan 53 year old Japanese-Am male with GERD and asthma diagnosed with colitis on colonoscopy in Jul, 2017 in the [facility]. Patient notes improvement in his symptoms with Mesalamine and prednisone and recurrent pain and diarrhea when he stops these medications. Colonoscopy in 11/2018 showed patchy inflammation of the TI, cecum and left colon and distal rectum suggestive of Crohn's disease versus partially treated UC with backwash ileitis. Biopsies showed Focal active ileitis; no chronic injury seen and chronic, mildly active, colitis without granulomas. Labs revealed normal sed rate and CRP. Fecal calprotectin was elevated at 135.8. IBD serologies were not consistent with IBD. Pt notes association of abdominal pain with stress suggesting he may have associated IBS. Pt was switched to high dose Lialda 4.8 grams daily(due to coverage issues for Asacol) with improvement in symptoms of colitis. Patient had tachycardia, palpitations and elevated LFTs felt to be due to high-dose Lialda and dose was decreased. He was advised to start azathioprine 50 mg once a day and did not start taking it due to concern for side effects. He notes improvement in his symptoms and resolution of diarrhea and rectal bleeding. He complains of headache and dizziness, which resolved after he decreased Lialda to one tablet a day - MCDONNELL due to Migraine & dizziness due to eye problems. He changed his diet and is taking a healthier diet with avocados and bananas. Being worked up for dizziness. Pt is taking Lialda 4 tablets daily at present and labs showed slightly elevated transaminases. 08/17/22 He was advised to decrease dose to Lialda to 3 tablets daily and Repeat Labs in 1?month . 10/2022 calprotectin was 7. 12/27/22 Pt advised to continue on Lialda 2 tablets in the morning and 1 at night and have repeat labs in 6 months 06/13/23 Notes some blood once in a while if he eats something spicy Taking Mesalamine 2 cap in the morning and one at night 02/20/24 Went to her sister's house last week and was painting her window Meal pattern changed Noted constant 02/07 LLQ and sometimes RLQ pain - pain is different from abd pain associated with IBD flares in the past Notes increased pain when he wakes up and radiates to the back. Unable to walk straight for a few days Abd pain has improved to 4/10 Pt reassured - pain is likely musculoskeletal in etiology associated with excessive physical work. Pt had labs checked by PCP - normal CBC and LFTs and mildly elevated sed rate of 22 Abd US showed small GB polyps Pt advised to have a fecal calprotectin checked. 06/18/24 Lab results reviewed Can have intermittent abdominal pain when he is hungry. Abd pain resolves after he eats. Pt will be scheduled for a colonoscopy for IBD surveillance in summer Message sent to GI travertine installer to schedule a colonoscopy FU clinic appt in 6 months. Orders: Orders Complete Blood Count Auto Diff Today K52.9 - Noninfective gastroenteritis and colitis, unspecified C Reactive Protein Today K52.9 - Noninfective gastroenteritis and colitis, unspecified Liver Panel Today K52.9 - Noninfective gastroenteritis and colitis, unspecified Colonoscopy - GI Use Only Today K52.9 - Noninfective gastroenteritis and colitis, unspecified Medications: New bisacodyl (Dulcolax (bisacodyl)) Take 4 tablets at 12 pm the day before colonoscopy appointment 20 mg (4 x 5 mg) PO ONCE 1 day 4 tabs 0RF colon prep polyethylene glycol 3350 (Miralax) Mix Miralax with 64 oz(8 cups) of Crystal light. Take 2 tablets of Dulcolax qt 12 pm. Wait to have your 1st bowel movement, then begin drinking Miralax. Drink a glass of Miralax every 10-15 minutes until you are finished. You will drink at least another 4 cups of clear liquid of your choice over the next 2 hours. Please drink as many clear liquids as possible You may have clear liquids up to four hours before your procedure 17 grams PO DAILY 1 day 238 grams 0RF colon prep Coding Level of Care Code Tele Est Pt Level 3 (30391) Diagnoses IBD (inflammatory bowel disease) K52.9 GERD (gastroesophageal reflux disease) K21.9 Elevated LFTs R79.89 Left sided abdominal pain R10.9 Gallbladder polyp K82.4 Time Spent (min) 12
--- OUTSIDE RECORDS SUMMARY | 2024-06-18 10:45 | XMS_ITS ---
Author Organization [facility] Address [address] [place] [address] Care Team Providers Care Broom Worker Name Role Phone Taylor Maldonado MD Primary Care Provider Les AlonzoTaiwour Unavailable [phone] Allergies No Known Allergies Results Component Value Reference Range Notes ClinitekStatus SG (FRENCH) Reviewed date:11/07/2023 01:51:51 PM Interpretation: Performing Lab: Notes/Report: JEANNIE NEGATIVE BLO NEGATIVE GLU NEGATIVE KET NEGATIVE NOEL NEGATIVE NIT NEGATIVE pH 6.5 PRO NEGATIVE SG 1.015 URO 0.2 E.U./dL REASON FOR VISIT Urinary Incontinence Medications Medication SIG (Take, Route, Frequency, Duration) Notes Start Date End Date Status Vitamin B12 *Pick strength-f orm from Medispan for eRX* Active Probiotic *Pick strength-f orm from Medispan for eRX* Active Vitamin D *Pick strength-f orm from Medispan for eRX* Active Prostate PQ *Pick strength-f orm from Medispan for eRX* Active Mesalamine *Pick strength-f orm from Medispan for eRX* Active Vitamin C *Pick strength-f orm from Medispan for eRX* Not-Taking Solo *Pick strength-f orm from Medispan for eRX* Active Social History Tobacco Use: Social History Observation Description Date Details (start date - stop date) Never Smoker NA - NA Tobacco Use: Question Answer Notes Status: Never tobacco user Vital Signs Height 63.75 in 11/07/2023 Weight 142 lbs 11/07/2023 BMI 24.56 kg/m2 11/07/2023 Encounters Encounter Location Date Provider Diagnosis [facility] [address] [place] [address] 11/07/2023 Ramiro Alonzo Frequency of micturi tion R35.0 ; Encounter for screening for malignant neoplasm of prostate Z12.5 and Pelvic and perineal pain R10.2 Assessments Encounter Date Diagnosis (ICD Code) Assessment Notes Treatment Notes Treatment Clinical Notes Section Notes 11/07/2023 Frequency of micturition (ICD-10 - R35.0) His 11/14/20 PVR was 75 cc 11/07/2023 Encounter for screening for malignant neoplasm of prostate (ICD-10 - Z12.5) 10/30/22 KELSEY unremarkable His most recent PSA from 10/30/23 is 1.5 11/07/2023 Pelvic and perineal pain (ICD-10 - R10.2) may use NSAIDs before sex and cont Prostate PQ if symptoms worsen with increased painful ejaculation or pelvic pain, to consider pelvic PT and consider doing prostate u/s his pain has subsided cont prostate pq Plan Of Treatment Treatment Notes Assessment Notes Frequency of micturition His 11/14/20 PV R was 75 cc Encounter for screening for malignant neoplasm of prostate 10/30/22 KELSEY unremarkable His most recent PSA from 10/30/23 is 1.5 Pelvic and perineal pain may use NSAIDs before sex and cont Prostate PQ if symptoms worsen with increased painful ejaculation or pelvic pain, to consider pelvic PT and consider doing prostate u/s his pain has subsided cont prostate pq Future Test Test Name Order Date PSA 11/06/2024 Next Appt Details Follow Up: 1 Year, Reason: p sa and KELSEY Provider Name:Josias Escobar 11/12/2024 10:30:00 AM, [address], [address], [place], [address], Progress Notes * Christina APPIAHOB:1970 (52 yo M)Acc No.[id number]:11/07/2023 Patient:?Ziggy APPIAH Provider:?Ramiro Alonzo MD :1970???Age:52 Y???Sex:Male [place] e:11/07/2023 Address:[address] [place], [place] [address] [id number] Pcp:Taylor Maldonado MD Subjective: * Chief Complaints: * ???1. Urinary Incontinence. * HPI: ???Current Symptoms:? 52 y/o male with urinary urgency and frequency presents for follow up with PSA. The patient's most recent PSA from 10/30/23 is 1.5 Patient with frequency x4/day and has some intermittency Not currently on any MET. PSA History: 10/2022? ? ?- 1.2 06/26/2021 - 0.85 he is now with 2 children and wants a boy. ???Prior History:? The patient was referred for evaluation of urinary incontinence. He reported voiding well on Flomax 0.4 mg, started in 03/2020 and he stopped taking it in 09/2020 as it did not help much. He has frequency but drinks a lot of water at work. His 11/14/20 PVR was 75 cc. He has been taking Prostate PQ and he feels better with less urgency but has some pain in the lower abdomen after he ejaculates. Also c/o pain in the perineum after ejaculation with masturbation. He is concerned he won't be sexually active [place] as a result of the pain. His pain is 2/10 in severity. He is able to get good erection though may not last long. He denies penile curvature issues. He has tried viagra in the past but not at maximal dosage and he does not want to try again at this time. * ROS:?10 Pt.:?Patient denies:?shortness of breath, chest pain, heart palpitations, abnormal clotting, diarrhea, nausea, vomiting, fever, chills, abnormal weight loss, blurred vision, hot flashes.? * Active Problem List R39.81 Functional urinary i ncontinence Modified On:11/14/2020W/U Status:confirmed R35.0 Frequency of micturi tion Modified On:10/19/2021W/U Status:confirmed R10.2 Pelvic and perineal pain Modified On:10/19/2021W/U Status:confirmed Z12.5 Encounter for screen ing for malignant neoplasm of prostate Modified On:10/19/2021W/U Status:confirmed * Medical History:?UC, Complex migraines, HLD, Functional urinary incontinence. * Family History:?Father: dece ased, diagnosed with CAD (coronary artery disease).?Mother: , dementia, diagnosed with Diabetes, Hypertension.? * Social History:?Tobacco Use:?Tobacco Use?Date tobacco status assessed?11/07/2023,?Status:?Never tobacco user.? * Medications:?Taking Mesalami ne , Notes to Pharmacist: *Pick strength-form from Medispan for eRX*, Taking Probiotic , Notes to Pharmacist: *Pick strength-form from Medispan for eRX*, Taking Prostate PQ , Notes to Pharmacist: *Pick strength-form from Medispan for eRX*, Taking Solo , Notes to Pharmacist: *Pick strength-form from Medispan for eRX*, Taking Vitamin B12 , Notes to Pharmacist: *Pick strength-form from Medispan for eRX*, Taking Vitamin D , Notes to Pharmacist: *Pick strength-form from Medispan for eRX*, Not-Taking Vitamin C , Notes to Pharmacist: *Pick strength- form from Medispan for eRX*, Discontinued Atorvastatin Calcium , Notes to Pharmacist: *Pick strength-form from Medispan for eRX*, Medication List reviewed and reconciled with the patient * Allergies:?N.K.D.A. Objective: * Vitals:?Ht: 63.75, Wt:142, W eight Change: 0 lbs, BMI:24.56. * Examination: ???General Examination: ?GENERAL APPEARANCE?no acute distress.?HEENT:?normal appearance.?EYE:?anicteric sclerae, no lid lag, pupils equal and round.?NECK/THYROID:?full range of motion, supple.?CARDIOVASCULAR:?no lower extremity swelling.?LUNGS:?unlabored breathing without use of accessory muscles.?ABDOMEN:?non-tender, non-distended.?MUSCULOSKELETAL:?normal gait, normal station.?SKIN:?no rashes or lesions.?PSYCH?alert and oriented, appropriate mood and affect.? Assessment: * Assessment: 1.?Encounter for screening f or malignant neoplasm of prostate - Z12.5 (Primary)?2.?Frequency of micturition - R35.0?3.?Pelvic and perineal pain - R10.2? Plan: * Treatment: 2.?Frequency of micturition?LAB: ClinitekStatus SG (FRENCH) (Collection Date & Time - 11/07/2023) ? Value Reference Range ?JEANNIE NEGATIVE * ?BLO NEGATIVE * ?GLU NEGATIVE * ?KET NEGATIVE * ?NOEL NEGATIVE * ?NIT NEGATIVE * ?pH 6.5 * ?PRO NEGATIVE * ?SG 1.015 * ?URO 0.2 E.U./dL Notes: His 11/14/20 PVR was 75 cc??3.?Pelvic and perineal pain? Notes: may use NSAIDs before sex and cont Prostate PQ if symptoms worsen with increased painful ejaculation or pelvic pain, to consider pelvic PT and consider doing prostate u/s his pain has subsided cont prostate pq?? * Procedure Codes:?88376 URINA LYSIS, AUTO, W/O SCOPE * Preventive Medicine:?cont Prostate pq and solo vitamin. * Follow Up:?1 Year (Reason: p sa and KELSEY) * * Sign off status: Completed true * Provider:?Ramiro Alonzo MD Date:?11/07/19 24 Generated for Srinivas hawley/Chon/Anayitting on:?06/18/2024 10:45 AM EST History and Physical Notes * Examination Category Sub-Category Detail Notes Category Not es General Examination HEENT: normal appearance NECK/THYROID: full range of motion , supple CARDIOVASCULAR: no lower extremity s welling LUNGS: unlabored breathing without use of accessory muscles ABDOMEN: non-tender, non-dist ended GENERAL APPEARANCE no acute distress SKIN: no rashes or lesions MUSCULOSKELETAL: normal gait, normal station PSYCH alert and oriented, appropriate mood and affect EYE: anicteric sclerae, n o lid lag, pupils equal and round
--- OUTSIDE RECORDS SUMMARY | 2024-06-18 10:45 | XMS_ITS | Patient Health Record ---
Author Organization [facility] Address [address] [place] [address] Care Team Providers Care Float Operator Name Role Phone Taylor Maldonado MD Primary Care Provider Unav natasha AlonzoTaiwour Unavailable [phone] Allergies No Known Allergies Results Component Value Reference Range Notes ClinitekStatus SG (FRENCH) Reviewed date:11/07/2023 01:51:51 PM Interpretation: Performing Lab: Notes/Report: JEANNIE NEGATIVE BLO NEGATIVE GLU NEGATIVE KET NEGATIVE NOEL NEGATIVE NIT NEGATIVE pH 6.5 PRO NEGATIVE SG 1.015 URO 0.2 E.U./dL PSA Reviewed date:10/30/2023 03:55:18 PM Interpretation: Performing Lab:[facility] [address] [place] [address] Notes/Report: PSA Screening Test 1.5 0.0-4.0 NG/ML Reason For Referral No Information Medications Medication SIG (Take, Route, Frequency, Duration) [...] Question Answer Notes Status: Never tobacco user Problems Problem Type SNOMED Code ICD Code Onset Dates Problem Status W/U Status Risk Notes Problem Pelvic and perineal pain (189782281) Pelvic and perineal pain (R10.2) Active confirmed Problem Frequency of micturition (457126161) Frequency of micturition (R35.0) Active confirmed Problem Migraine with aura (7237614) Migraine with aura, not intractable, without status migrainosus (G43.109) Active confirmed Problem Screening for malignant neoplasm of prostate (518452328) Encounter for screening for malignant neoplasm of prostate (Z12.5) Active confirmed Problem Functional urinary incontinence (175609365) Functional urinary incontinence (R39.81) Active confirmed Vital Signs Height 63.75 in 11/07/2023 Weight 142 lbs 11/07/2023 BMI 24.56 kg/m2 11/07/2023 Encounters Encounter Location Date Provider Diagnosis -[address] [place] [address] 11/07/2023 Ramiro Alonzo Frequency of micturi tion [...] subsided cont prostate pq Plan Of Treatment Pending Test Test Name Order Date psa 04/21/2021 Future Test Test Name Order Date psa 10/27/2022 psa 11/06/2022 psa 10/31/2023 Next Appt Details Provider Name:Ramiro Alonzo, 0 11/12/2024 10:30:00 AM, [address] [place] [address] [address], [place], [address], Insurance Providers Payer Name Payer Address Payer Phone Subscriber Number Group Number Insured Name Patient Relationship to Insured Coverage Start Date Coverage End Date [facility] [address] [place] [address] [id number] Ziggy Holloway Self - patient is the insured Medical (General) History Medical History History ICD Code UC complex migraines HLD functional urinary incontinence Hospitalization History Reason Date(Month/Year) Admitted to [facility] for Comp licated Migraines 03/2020
--- OUTSIDE RECORDS SUMMARY | 2024-06-18 10:45 | XMS_ITS ---
Author Organization [facility] r Address [address] [place] [address] Care Team Providers Care Die Mounter Name Role Phone Taylor Maldonado Primary Care Provider Unavail RAMIRO Serrano Unavailable [phone] REASON FOR VISIT 1yr follow up, psa Encounters Encounter Location Date Provider Diagnosis [facility] [place] [address] [place] [address] 11/07/2023 RAMIRO VAZQUEZ Plan Of Treatment No Information Progress Notes * Christina ROBERTSOB:1970 (53 yo M)Acc No.[id number]:11/07/2023 Progress Notes Patient:?Ziggy ROBERTS Provider:?Ramiro Vazquez M.D. :1970???Age:52 Y???Sex:Male [place] e:11/07/2023 [address] [facility] [facility] [id number] Pcp:Taylor Maldonado Subjective: * Chief Complaints: * ???1. 1yr follow up, psa. * Medical History:? Objective: * Vitals:? Assessment: Plan: * Treatment: * * Electronic signature of DAVID VAZQUEZ MD on 06/18/2024 at 10:45 AM EST Sign off status: Pending * Provider:?Ramiro Vazquez M.D. Date:?2023 Generated for Oswaldoi ng/Faparkerg/eTransmitting on:?06/18/2024 10:45 AM EST
--- OUTSIDE RECORDS SUMMARY | 2024-06-18 10:45 | XMS_ITS | Patient Health Record ---
Author Organization [facility] r Address [address] [place] [id number] Care Team Providers Care Tablet Technician Name Role Phone Taylor Maldonado Primary Care Provider Unavail JORGE Serrano Unavailable [phone] Allergies No Known Allergies Reason For Referral No Information Medications Medication SIG (Take, Route, Frequency, Duration) Notes Start Date End Date Status Probiotic Active Atorvastatin Calcium Active Vitamin C Not-Taking Mesalamine Active Solo Active Prostate PQ Active Vitamin D Active Vitamin B12 Active Social History Tobacco Use: Social History Observation Description Date Details (start date - stop date) Never Smoker NA - NA Tobacco Use/Smoking Question Answer Notes Are you a: never smoker Alcohol Screen Question Answer Notes Did you have a drink containing alcohol in the p ast year? No Points 0 Interpretation Negative Problems Problem Type SNOMED Code ICD Code Onset Dates Problem Status W/U Status Risk Notes Problem Functional urinary incontinence (782020040) Functional urinary incontinence (R39.81) Active confirmed Problem Frequency of micturition (868730667) Frequency of micturition (R35.0) Active confirmed Problem Screening for malignant neoplasm of prostate (782148259) Encounter for screening for malignant neoplasm of prostate (Z12.5) Active confirmed Problem Pelvic and perineal pain (237327188) Pelvic and perineal pain (R10.2) Active confirmed Encounters Encounter Location Date Provider Diagnosis [facility] [place] [address] [place] [address] 11/07/2023 JORGE VAZQUEZ Plan Of Treatment Pending Test Test Name Order Date psa 04/21/2021 Future Test Test Name Order Date psa 10/27/2022 psa 11/06/2022 psa 10/31/2023 Insurance Providers Payer Name Payer Address Payer Phone Subscriber Number Group Number Insured Name Patient Relationship to Insured Coverage Start Date Coverage End Date [facility] [address] MEDICAL CLAIMS [place], [place] [id number] Ziggy Caro Self - patient is the insured Medical (General) History Medical History History ICD Code UC complex migraines HLD functional urinary incontinence
== END 2024-06-18 13:06 | disposition home or self-care (01) ==
LOC: HO.HGI 10:43
PROVIDERS: PCP Family Medicine; Visit Provider Internal Medicine Gastroenterology
DX: K52.9 Noninfective gastroenteritis and colitis, unspecified (principal); K21.9 Gastro-esophageal reflux disease without esophagitis; R79.89 Other specified abnormal findings of blood chemistry; R10.9 Unspecified abdominal pain; K82.4 Cholesterolosis of gallbladder
CPT/HCPCS: 99442

== ENCOUNTER 2024-11-20 11:54 | Day surgery (SDC) | payer BC, SELFPAY ==
--- OUTSIDE RECORDS SUMMARY | 2024-11-05 11:16 | XMS_ITS | Clinical Summary ---
Author Organization [facility] Address [address] [place] [address] Care Team Providers Care Straight Edger Name Role Phone Taylor Maldonado MD Primary Care Provider [phone] Allergies No known active allergies Medications mesalamine (LIALDA) 1.2 gram enteric coated tablet Take 2 (two) tablets (2.4 g total) by mouth once daily. Active acetaminophen (TYLENOL) 500 MG tablet Take 1 (one) tablet (500 mg total) by mouth every 6 (six) hours. 30 tablet 0 Active atorvastatin (LIPITOR) 10 MG tablet Take 1 (one) tablet (10 mg total) by mouth at bedtime. 90 tablet 2 4 Active triamcinolone (KENALOG) 0.1 % cream Apply topically 2 (two) times a day. 28.4 g 1 4 Active vitamin D3-vitamin K2 1,250-200 mcg cap VITAMIN D -3 Active rye grass extract/quercetin (PROSTATE PQ ORAL) Prostate PQ Active rizatriptan (MAXALT-CUFF TURNER MACHINE OPERATOR) 10 MG disintegrating tablet Dissolve 1 (one) tablet (10 mg total) by mouth as needed (migraine). 10 tablet 1 5 Active meclizine (ANTIVERT) 25 mg tablet Take 0.5 (half) tablet to 1 (one) tablet (12.5-25 mg total) by mouth 3 (three) times a day as needed (vertigo). 20 tablet Active ferrous sulfate 325 (65 FE) MG tablet Take 1 (one) tablet (325 mg total) by mouth once daily. Take with vitamin C. Avoid taking with calcium, dairy, or antacids. 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/20/2024 Dysarthria 03/05/2020 Encounters Date Type Department Care Team Description 10/28/2024 9:12 AM EDT Hospital Encounter [address] [phone] Mar Hernandez NP Abnormal CBC (Primary Dx); Low mean corpuscular volume (MCV) 10/23/2024 10:56 AM EDT - 10/23/2024 11:59 PM EDT Hospital Encounter [address] [address] Mar Hernandez NP Migraine without status migrainosus, not intractable, unspecified migraine type (Primary Dx); Nonintractable episodic headache, unspecified headache type Discharge Disposition: Home or Self Care 10/23/2024 10:00 AM EDT Office Visit [facility] Primary Care, [facility] Medicine [address] [place] [phone] Mar Hernandez NP Nonintractable episodic headache, unspecified headache type (Primary Dx) 10/14/2024 10:29 AM EDT - 10/14/2024 11:59 PM EDT Hospital Encounter [address] [phone] Thelma Hill PA Dermatophytosis of nail (Primary Dx) Discharge Disposition: Home or Self Care 08/24/2024 11:28 AM EST - 08/24/2024 11:59 PM EST Hospital Encounter [address] [phone] Thelma Hill PA Need for prophylactic chemotherapy (Primary Dx); Dermatophytosis of nail Discharge Disposition: Home or Self Care from Last 3 Months Immunizations Name Administration Dates Next Due Influenza Quad Preservative and Antibiotic Free 05/01/2022 Influenza Quadrivalent Multi Dose 05/12/2019 Influenza Quadrivalent Prese rvative Free (IM) 04/25/2021,05/12/2019,04/20/2019 Influenza TIV Preservative Free (IM) 05/20/2024 PFIZER COVID-19 Vaccine (Gre y), mRNA, LNP-S, PF, 30 mcg/0.3 mL dose 10/07/2021 PFIZER COVID-19 Vaccine (Pur ple), mRNA, LNP-S, PF, 30 mcg/0.3 mL dose 10/07/2021 Pneumococcal Polysaccharide 09/15/2018 Td Adsorbed 09/11/2017 Td Preservative Free 05/20/2024,09/11/2017 Social History Tobacco Use Types Packs/Day Years Used Date Smoking Tobacco: Never Smokeless Tobacco: Never Tobacco Cessation:Counseling Given: Not Answered Alcohol Use Standard Drinks/Week Comments Never 0 (1 standard drink = 0.6 oz pur e alcohol) Cognection Answer Date Recorded In the past 12 months has e [employer], gas, oil, or water [employer] threatened to shut off services in your home? No 10/23/2024 Humiliation, Afraid, Rape, and Kick questionnair e Answer Date Recorded Within the last year, have y ou been afraid of your partner or ex-partner? No 10/23/2024 Within the last year, have y ou been humiliated or emotionally abused in other ways by your partner or ex-partner? No Within the last year, have y ou been kicked, hit, slapped, or otherwise physically hurt by your partner or ex-partner? No 10/23/2024 Within the last year, have y ou been raped or forced to have any kind of sexual activity by your partner or ex-partner? No 10/23/2024 Social Connection and Isolat ion Panel [NHANES] Answer Date Recorded In a typical week, how many times do you talk on the phone with family, friends, or neighbors? More than three times a week 10/23/2024 How often do you get togethe r with friends or relatives? Once a week 10/23/2024 How often do you attend chur ch or jew services? More than 4 times per year 10/23/2024 Do you belong to any clubs o r organizations such as pentecostal groups, unions, fraternal or athletic groups, or school groups? No 10/23/2024 How often do you attend meet ings of the clubs or organizations you belong to? Never 10/23/2024 Are you , , di vorced, , never , or living with a partner? 10/23/2024 AUDIT-C Answer Date Recorded Q1: How often do you have a drink containing alcohol? Never 10/23/2024 Q2: How many drinks containi ng alcohol do you have on a typical day when you are drinking? Patient does not drink Q3: How often do you have si x or more drinks on one occasion? Never 10/23/2024 Overall Financial Resource Strain (CARDIA) Answe r Date Recorded How hard is it for you to pa y for the very basics like food, housing, medical care, and heating? Not hard at all 10/23/2024 PHQ-2 Answer Date Recorded Patient Health Questionnaire-2 Score for SDOH 0 10/23/2024 [facility] - Occupational Stress Questionnaire Answer Date Recorded Do you feel stress - tense, restless, nervous, or anxious, or unable to sleep at night because your mind is troubled all the time - these days? Not at all 10/23/2024 Exercise Vital Sign Answer Date Recorde d On average, how many days pe r week do you engage in moderate to strenuous exercise (like a brisk walk)? 0 days 10/23/2024 On average, how many minutes do you engage in exercise at this level? 0 min 10/23/2024 Hunger Vital Sign Answer Date Recorded Within the past 12 months, y ou worried that your food would run out before you got the money to buy more. Never true 10/24/19 25 Within the past 12 months, t he food you bought just didn't last and you didn't have money to get more. Never true 10/23/2024 PRAPARE - Transportation Answer Date Re corded In the past 12 months, has l ack of transportation kept you from medical appointments or from getting medications? No 09/30 In the past 12 months, has l ack of transportation kept you from meetings, work, or from getting things needed for daily living? No 10/23/2024 Housing Stability Vital Sign Answer [place] e Recorded In the last 12 months, was t here a time when you were not able to pay the mortgage or rent on time? No 10/23/2024 In the past 12 months, how m any times have you moved where you were living? 1 10/23/2024 At any time in the past 12 m [facility], were you homeless or living in a assisted (including now)? No 10/23/2024 Substance Use Answer Date Recorded Do you use marijuana, cannabis, or THC-containin g products? No 10/23/2024 Do you use medicine not pres cribed to you, or any other types of drugs (such as cocaine, heroin, fentanyl, or meth)? No Sex and Gender Information Value Date Recorded Sex Assigned at Not on file Legal Sex Male 10:16 AM EDT Gender Identity Not on file Sexual Orientation Not on file Last Filed Vital Signs Vital Sign Reading Time Taken Comments Blood Pressure 120/80 10/23/2024 10:05 AM EDT Pulse 92 10/23/2024 10:05 AM EDT Temperature 36.4 ??C (97.5 ??F) 04/22/2024 9:02 AM ED T Respiratory Rate 18 02/01/2022 11:29 AM EDT Oxygen Saturation 97% 10/23/2024 10:05 AM EDT Inhaled Oxygen Concentration - - Weight 66.7 kg (147 lb) 10/23/2024 10:05 AM EDT Height 162.6 cm (5' 4 ) 10/23/2024 10:05 AM EDT Body Mass Index 25.23 10/23/2024 10:05 AM EDT Plan of Treatment Upcoming Encounters Date Type Department Care Team (Late st Contact Info) Description 12/21/2024 10:00 AM EDT Office Visit [facility] Primary Care, [facility] Medicine [address] [place] [address] 2 [place] [phone] Zakia Earl, PA [address] [place] [address] 2 [place] [address] Health Maintenance Due Date Last Done Comments HEPATITIS C SCREENING 12/17/1987 CT COLONOGRAPHY (CRC) 12/17/2015 FIT-DNA (CRC) 12/17/2015 FIT/iFOBT (CRC) 12/17/2015 SIGMOIDOSCOPY (CRC) 12/17/2015 ZOSTER VACCINE (1 of 2) 2020 COLONOSCOPY (CRC) 12/19/2023 12/18/2018 COLORECTAL CANCER SCREENING (CRC) 12/19/2023 COVID-19 IMMUNIZATION ( season) 2024 10/07/2021, 10/07/2021, 11/16/2020, Additional history exists DTAP/TDAP/TD VACCINES (1 - Tdap) 05/21/2024 05/20/2024, 09/11/2017, 09/11/2017 RSV IMMUNIZATION (1 - 1-dose 75+ series) 2045 INFLUENZA VACCINE Completed 05/20/2024, , 04/25/2021, Additional history exists IPV VACCINES Aged Out No longer eligi ble based on patient's age to complete this topic MENINGOCOCCAL B VACCINE Aged Out No l onger eligible based on patient's age to complete this topic Procedures Procedure Name Priority Date/Time Associated Diagnosis Comments CBC NO DIFF Routine 10/28/2024 9:12 AM EDT VENIPUNCTURE ONLY Routine 10/28/2024 9:1 2 AM EDT Abnormal CBC HEMOGLOBIN ELECTROPHORESIS Routine 10/28/2024 9:12 AM EDT Abnormal CBC Low mean corpuscular volume (MCV) TRANSFERRIN SATURATION Routine 10:57 AM EDT VENIPUNCTURE ONLY Routine 10/23/2024 10: 57 AM EDT Migraine without status migrainosus, not intractable, unspecified migraine type TIBC Routine 10/23/2024 10:57 AM EDT Nonintractable episodic headache, unspecified headache type LEAD LEVEL, BLOOD Routine 10/23/2024 10: 57 AM EDT Nonintractable episodic headache, unspecified headache type IRON LEVEL Routine 10/23/2024 10:57 AM EDT Nonintractable episodic headache, unspecified headache type FERRITIN Routine 10/23/2024 10:57 AM EDT Nonintractable episodic headache, unspecified headache type CBC WITH DIFF Routine 10/23/2024 10:57 AM EDT Nonintractable episodic headache, unspecified headache type BASIC METABOLIC PANEL Routine 10/23/2024 10:57 AM EDT Nonintractable episodic headache, unspecified headache type VENIPUNCTURE ONLY Routine 10/14/2024 10: 29 AM EDT Dermatophytosis of nail HEPATIC FUNCTION PANEL Routine 10:29 AM EDT Dermatophytosis of nail VENIPUNCTURE ONLY Routine 08/24/2024 11: 30 AM EST Need for prophylactic chemotherapy Dermatophytosis of nail HEPATIC FUNCTION PANEL Routine 11:30 AM EST Need for prophylactic chemotherapy Dermatophytosis of nail EXTERNAL FLEXIBLE SIGMOIDOSCOPY Routine 12/18/2018 Routine general medical examination at a health care facility from Last 3 Months or Most Recently Relevant to Health Maintenance Results * (ABNORMAL) CBC No Diff (10/28/2024 9:12 AM EDT) WBC 6.2 4.2 - 10.0 [id number] 10/28/2024 11:20 AM EDT [facility] RBC 5.47 4.50 - 5.60 [id number] 10/28/2024 11:20 AM EDT [facility] Hemoglobin 14.3 13.4 - 16.0 g/dL 10/28/2024 11:20 AM EDT [facility] Hematocrit 44.0 41.2 - 51.0 % 10/28/2024 11:20 AM EDT [facility] MCV 80.4(L) 85.2 - 100.2 fL 10/28/2024 11:20 AM EDT [facility] MCH 26.1(L) 27.0 - 32.4 pg 10/28/2024 11:20 AM EDT [facility] MCHC 32.5 29.5 - 34.2 g/dL 10/28/2024 11:20 AM EDT [facility] RDW 12.7 11.8 - 14.4 % 10/28/2024 11:20 AM EDT [facility] Platelets 209 168 - 382 [id number] 10/28/2024 11:20 AM EDT [facility] MPV 10.7 9.6 - 12.5 fL 10/28/2024 11:20 AM EDT [facility] NRBC % 0.0 -1.0 - 0.0 % 10/28/2024 11:20 AM EDT [facility] NRBC (absolute) 0.0 [id number] 11:20 AM EDT [facility] 10/28/2024 9:12 AM EDT 10/28/2024 10:54 AM EDT Bangutdave Hernandez HAND PROFILER LAB BLOOD ORDERABLES Final Result Performing Organization Address City/State/[facility] Co de Phone Number [facility] [address] [place] [address] * Venipuncture Only (10/28/2024 9:12 AM EDT) Only the most recent of4 resultswithin the time period is included. [facility] Signature Venipuncture Done 10/28/2024 9:13 AM EDT [facility] Blood 10/28/2024 9:12 AM EDT 10/28/2024 9:12 AM EDT Toywheel[email or web address] HAND PROFILER LAB BLOOD ORDERABLES Final Result Performing Organization Address City/[facility]/ZIP Co de Phone Number [facility] [address] [place] [address] * Lead Level, Blood (10/23/2024 10:57 AM EDT) Lead Level, Blood <1 0 - 4 UG/DL 10/27/2024 7:49 PM EDT [facility] 10/23/2024 10:5 7 AM EDT 10/23/2024 5:08 PM EDT Bangutna Venkatayogi HAND PROFILER LAB BLOOD ORDERABLES Final Result Performing Organization Address City/[facility]/ZIP Co de Phone Number [facility] [address] [place] [address] [facility] [address] [place] [id number] * (ABNORMAL) Transferrin Saturation (10/23/2024 10:57 AM EDT) Transferrin Saturation 11(L) 15 - 50 % 10/23/2024 2:27 PM EDT [facility] 10/23/2024 10:5 7 AM EDT 10/23/2024 1:45 PM EDT us Bangutdave Venkatayogi HAND PROFILER LAB BLOOD ORDERABLES Final Result Performing Organization Address City/[facility]/ZIP Co de Phone Number [facility] [address] [place] [address] * TIBC (10/23/2024 10:57 AM EDT) Transferrin 278 179 - 371 mg/dL 10/23/2024 2:27 PM EDT [facility] TIBC 409 250 - 450 UG/DL 10/23/2024 2:27 PM EDT [facility] Blood 10/23/2024 10:5 7 AM EDT 10/23/2024 1:45 PM EDT us Tuhina Venkatayogi HAND PROFILER LAB BLOOD ORDERABLES Final Result Performing Organization Address City/[facility]/ZIP Co de Phone Number [facility] [address] [place] [address] * (ABNORMAL) Basic Metabolic Panel (10/23/2024 10:57 AM EDT) Pathologist [facility] Glucose 117(H) 67 - 99 MG/DL 10/23/2024 2:27 PM EDT [facility] BUN 10 6 - 24 MG/DL 10/23/2024 2:27 PM EDT [facility] Creat Level 1.09 0.64 - 1.27 MG/DL 10/23/2024 2:27 PM EDT [facility] eGFR 81(L) >90 mL/min/1.7 3m exp2 10/23/2024 2:27 PM EDT [facility] Comment:Calculated using the CKD-epi 2020 race-free equation. BUN Creatinine Ratio 9 10/23/2024 2:27 PM EDT [facility] Sodium 141 135 - 145 MEQ/L 10/23/2024 2:27 PM EDT [facility] Potassium 3.9 3.6 - 5.1 MEQ/L 10/23/2024 2:27 PM EDT [facility] Chloride 105 98 - 110 MEQ/L 10/23/2024 2:27 PM EDT [facility] CO2 28 20 - 29 MEQ/L 10/23/2024 2:27 PM EDT [facility] Anion Gap 8 3 - 13 10/23/2024 2:27 PM EDT [facility] Calcium 9.0 8.4 - 10.2 MG/DL 10/23/2024 2:27 PM EDT [facility] Blood 10/23/2024 10:5 7 AM EDT 10/23/2024 1:45 PM EDT Mar Hernandez HAND PROFILER LAB BLOOD ORDERABLES Final Result Performing Organization Address City/[facility]/ZIP Co de Phone Number [facility] [address] [place] [address] * (ABNORMAL) CBC with Diff (10/23/2024 10:57 AM EDT) [facility] Signature WBC 6.1 4.2 - 10.0 [id number] 10/23/2024 2:40 PM EDT [facility] RBC 5.81(H) 4.50 - 5.60 [id number]/ L 10/23/2024 2:40 PM EDT [facility] Hemoglobin 15.4 13.4 - 16.0 g/dL 10/23/2024 2:40 PM EDT [facility] Hematocrit 47.1 41.2 - 51.0 % 10/23/2024 2:40 PM EDT [facility] MCV 81.1(L) 85.2 - 100.2 fL 10/23/2024 2:40 PM EDT [facility] MCH 26.5(L) 27.0 - 32.4 pg 10/23/2024 2:40 PM EDT [facility] MCHC 32.7 29.5 - 34.2 g/dL 10/23/2024 2:40 PM EDT [facility] RDW 13.2 11.8 - 14.4 % 10/23/2024 2:40 PM EDT [facility] Platelets 223 168 - 382 [id number]/L 10/23/2024 2:40 PM EDT [facility] MPV 11.0 9.6 - 12.5 fL 10/23/2024 2:40 PM EDT [facility] NRBC % 0.0 -1.0 - 0.0 % 10/23/2024 2:40 PM EDT [facility] NRBC (absolute) 0.0 [id number] 2:40 PM EDT [facility] Immature Granulocytes % 0.8 % 10/23/2024 2:40 PM EDT [facility] Immature Granulocytes (absolute) 0.1 0.0 - 0.1 [id number]/L 10/23/2024 2:40 PM EDT [facility] Seg Neutrophil % 57.4 % 10/24/19 2:40 PM EDT [facility] Seg Neutrophil (absolute) 3.5 1.9 - 6.7 [id number] 10/23/2024 2:40 PM EDT [facility] Lymphocyte % 23.7 % 10/23/2024 2:40 PM EDT [facility] Lymphocyte (absolute) 1.4 1.0 - 3.3 [id number]/L 10/23/2024 2:40 PM EDT [facility] Monocyte % 14.3 % 10/23/2024 2:40 PM EDT [facility] Monocyte (absolute) 0.9 0.3 - 0.9 [id number]/L 10/23/2024 2:40 PM EDT [facility] Eosinophil % 3.0 % 10/23/2024 2:40 PM EDT [facility] Eosinophil (absolute) 0.2 0.0 - 0.4 [id number] 10/23/2024 2:40 PM EDT [facility] Basophil % 0.8 % 10/23/2024 2:40 PM EDT [facility] Basophil (absolute) 0.1 0.0 - 0.1 [id number] 10/23/2024 2:40 PM EDT [facility] 10/23/2024 10:5 7 AM EDT 10/23/2024 2:28 PM EDT Mar Hernandez HAND PROFILER LAB BLOOD ORDERABLES Final Result [facility] [address] [place] [address] * (ABNORMAL) Iron Level (10/23/2024 10:57 AM EDT) [facility] Signature Iron 46(L) 49 - 181 UG/DL 10/23/2024 2:27 PM EDT [facility] Blood 10/23/2024 10:5 7 AM EDT 10/23/2024 1:45 PM EDT [facility] HAND PROFILER LAB BLOOD ORDERABLES Final Result [facility] [address] [place] [address] * Ferritin (10/23/2024 10:57 AM EDT) Ferritin 110 22 - 275 NG/ML 10/23/2024 2:42 PM EDT [facility] Blood 10/23/2024 10:5 7 AM EDT 10/23/2024 1:57 PM EDT [facility] LAB BLOOD ORDERABLES Final Result Performing Organization Address City/[facility] Co de Phone Number [facility] [address] [place] [address] * (ABNORMAL) Hepatic Function Panel (10/14/2024 10:29 AM EDT) Only the most recent of2 resultswithin the time period is included. Albumin 4.2 3.4 - 5.1 G/DL 10/14/2024 7:34 PM EDT [facility] Bilirubin, Total 0.6 0.1 - 1.2 MG/DL 10/14/2024 7:34 PM EDT [facility] Bilirubin, Direct 0.2 0.0 - 0.4 MG/DL 10/14/2024 7:34 PM EDT [facility] Alkaline Phosphatase 99 39 - 117 IU/L 10/14/2024 7:34 PM EDT [facility] Protein, Total 8.1 6.1 - 8.3 G/DL 10/14/2024 7:34 PM EDT [facility] ALT 65(H) 7 - 49 IU/L 10/14/2024 7:34 PM EDT [facility] AST (SGOT) 35 12 - 52 IU/L 10/14/2024 7:34 PM EDT [facility] Blood 10/14/2024 10:2 9 AM EDT 10/14/2024 3:16 PM EDT us Thelma BAILEY LAB BLOOD ORDERABLES Final Resul t [facility] [address] [place] [address] * External Colonoscopy (12/18/2018) 12/18/2018 us Taylor Maldonado MD LS PROCEDURE ORDERABLES F inal Result from Last 3 Months or Most Recently Relevant to Health Maintenance Insurance [facility] Advance Directives For more information, please contact: [phone] * Full Code (Latest Code Status on File) Date Activated Date Inactivated Comments 03/05/2020 5:42 PM 11/02/2020 12:32 PM Care Teams Straight Edger Relationship Specialty Start Date End Date Taylor Maldonado MD [address] [place] [id number] PCP - General Internal Medicine 03/05/20
--- OUTSIDE RECORDS SUMMARY | 2024-11-05 11:16 | XMS_ITS | Encounter Summary ---
Author Organization [facility] Address [address] [place] [address] Care Team Providers Care Plastic Joint Maker Name Role Phone Taylor Maldonado MD Primary Care Provider [phone] Encounter Details Date Type Department Care Team (Latest Contact Info) Description 10/28/2024 9:12 AM EDT Hospital Encounter [facility] [address] [place] [address] [address] [place] [address] Mar Hernandez, MARZENA [address] [place] [address] Abnormal CBC (Primary Dx); Low mean corpuscular volume (MCV) Social History Tobacco Use Types Packs/Day Years Used Date Smoking Tobacco: Never Smokeless Tobacco: Never Alcohol Use Standard Drinks/Week Comments Never 0 (1 standard drink = 0.6 oz pur e alcohol) [facility] Utilities Answer Date Recorded In the past 12 months has [facility] [employer], gas, oil, or water [employer] threatened to shut off services in your [...] 10/23/2024 How often do you attend chur or religion services? More than 4 times per year 10/23/2024 Do you belong to any clubs o r organizations such as holiness groups, unions, fraternal or athletic groups, or [...] Health Questionnaire-2 Score for SDOH 0 10/23/2024 [facility] - Occupational Stress Questionnaire Answer Date Recorded [...] money to buy more. Never true 10/24/19 Within the past 12 months, t he [...] any time in the past 12 m [facility], were you homeless or living in a penitentiary (including now)? No 10/23/2024 Substance Use Answer [...] on file Sexual Orientation Not on file documented as of this encounter Plan of Treatment Upcoming Encounters Date Type Department Care Team (Late st Contact Info) Description 12/21/2024 10:00 AM EDT Office [facility] [address] [place] [address] [address] [place] [address] Zakia Earl PA [address] [place] [phone] Pending Results Name Type Priority Associated Diagnoses Date /Time Hemoglobin Electrophoresis Lab Routine Abnormal CBC Low mean corpuscular volume (MCV) 10/28/2024 9:12 AM EDT documented as of this encounter Procedures Procedure Name Priority Date/Time Associated Diagnosis Comments CBC NO DIFF Routine 10/28/2024 9:12 AM EDT HEMOGLOBIN ELECTROPHORESIS Routine 10/28/2024 9:12 AM EDT Abnormal CBC Low mean corpuscular volume (MCV) VENIPUNCTURE ONLY Routine 10/28/2024 9:1 2 AM EDT Abnormal CBC documented in this encounter Results * (ABNORMAL) CBC No Diff (10/28/2024 9:12 AM EDT) WBC 6.2 4.2 - 10.0 [id number] 10/28/2024 11:20 AM EDT [facility] RBC 5.47 4.50 - 5.60 [id number]/L 10/28/2024 11:20 AM EDT [facility] Hemoglobin 14.3 13.4 - 16.0 g/dL 10/28/2024 11:20 AM EDT [facility] Hematocrit 44.0 41.2 - 51.0 % 10/28/2024 11:20 AM EDT [facility] MCV 80.4(L) 85.2 - 100.2 fL 10/28/2024 11:20 AM EDT [facility] MCH 26.1(L) 27.0 - 32.4 pg 10/28/2024 11:20 AM EDT [facility] MCHC 32.5 29.5 - 34.2 g/dL 10/28/2024 11:20 AM EDT [facility] RDW 12.7 11.8 - 14.4 % 10/28/2024 11:20 AM EDT [facility] Platelets 209 168 - 382 [id number] 10/28/2024 11:20 AM EDT [facility] MPV 10.7 9.6 - 12.5 fL 10/28/2024 11:20 AM EDT [facility] NRBC % 0.0 -1.0 - 0.0 % 10/28/2024 11:20 AM EDT [facility] NRBC (absolute) 0.0 [id number] 11:20 AM EDT [facility] 10/28/2024 9:12 AM EDT 10/28/2024 10:54 AM EDT [facility] BLOOD ORDERABLES Final Result Performing Organization Address City/[facility]/ZIP Co de Phone Number [facility] [address] [place] [address] * Venipuncture Only (10/28/2024 9:12 AM EDT) Venipuncture Done 10/28/2024 9:13 AM EDT [facility] Blood 10/28/2024 9:12 AM EDT 10/28/2024 9:12 AM EDT [facility]LOOD ORDERABLES Final Result Performing Organization Address City/[facility] Co de Phone Number [facility] [address] [place] [address] documented in this encounter Visit Diagnoses Diagnosis Abnormal CBC- Primary Other abnormal blood chemistry Low mean corpuscular volume (MCV) documented in this encounter Care Teams Plastic Joint Maker Relationship Specialty Start Date End Date Taylor Maldonado MD [address] [place] [id number] PCP - General Internal Medicine 03/05/20 documented as of this encounter
--- NOTE | 2024-11-19 12:42 | HO.ANESPROP2 ---
Documented by User: Ines Samuels NP 11/19/24 12:44 HPI - Anesthesia Eval Consult details Narrative: 53yo M for Colonoscopy PMFSH Active Problems Active Problems: All Active Problems Gallbladder polyp (Acute) Left sided abdominal pain (Acute) Elevated LFTs (Acute) GERD (gastroesophageal reflux disease) (Acute) IBD (inflammatory bowel disease) (Acute) Past Medical History Medical History (Updated 11/20/24 @ 13:13 by Janelle Milton RN) Asthma Vertigo Hypercholesteremia IBD (inflammatory bowel disease) Family History Family History Father No problems noted. Mother Family history of high blood pressure Surgical History Surgical History History of colonoscopy Social History Social History Are you a primary resident care provider to a significant other at home: No Do you presently have visiting nurse or other home services: No Alcohol intake: never Patient Tobacco Use Status: Never used Tobacco Have you been hit, kicked, punched, or otherwise hurt by someone within the past year? If so, by whom?: No Are you DNR?: No Advance Directives: No Advance Directives Information Provided: Yes Poor oral hygiene: No Meds Allergies Allergy/AdvReac Type Severity Reaction Status Date / Time No Known Allergies Allergy Verified 11/20/24 13:12 Home Medications ?Medication ?Instructions ?Recorded ?Confirmed ?Last Taken ?Type Lactobacillus acidophilus 1 tab PO DAILY 06/16/20 11/20/24 Unknown History (Acidophilus chewable tablet) rye grass extract 500 mg-quercetin tab PO 08/17/21 06/18/24 Unknown History 250 mg tablet (Prostate PQ) albuterol sulfate 90 mcg/actuation 2 puff inhalation Q6H PRN wheezing 03/01/22 11/20/24 Unknown History aerosol inhaler cholecalciferol (vitamin D3) 50 50 mcg PO DAILY 03/01/22 11/20/24 Unknown History mcg (2,000 unit) capsule fluticasone propionate 50 spray intranasal 03/01/22 06/18/24 Unknown History mcg/actuation nasal spray,suspension meclizine 25 mg tablet 25 mg PO TID PRN Vertigo 03/01/22 11/20/24 Unknown History melatonin 3 mg capsule 3 mg PO BEDTIME PRN Insomnia 08/17/22 11/20/24 Unknown History triamcinolone acetonide 0.1 % 1 appl topical BID-TID 12/19/23 11/20/24 Unknown History topical cream atorvastatin 10 mg tablet 10 mg PO DAILY 11/20/24 11/20/24 Unknown History Assessment and Plan Assessment Anesthesia Assessment: Chart Reviewed Documented by User: Anum Ratliff MD 11/20/24 15:22 [facility] Past Medical History Medical History (Updated 11/20/24 @ 13:13 by Janelle Milton RN) Asthma Vertigo Hypercholesteremia IBD (inflammatory bowel disease) Family History Family History Father No problems noted. Mother Family history of high blood pressure Family history of problems with anesthesia: No Surgical History Surgical History History of colonoscopy History of Problems with Anesthesia: No Social History Social History Are you a primary resident care provider to a significant other at home: No Do you presently have visiting nurse or other home services: No Alcohol intake: never Patient Tobacco Use Status: Never used Tobacco Have you been hit, kicked, punched, or otherwise hurt by someone within the past year? If so, by whom?: No Are you DNR?: No Advance Directives: No Advance Directives Information Provided: Yes Poor oral hygiene: No Meds Allergies Allergy/AdvReac Type Severity Reaction Status Date / Time No Known Allergies Allergy Verified 11/20/24 13:12 Home Medications ?Medication ?Instructions ?Recorded ?Confirmed ?Last Taken ?Type Lactobacillus acidophilus 1 tab PO DAILY 06/16/20 11/20/24 Unknown History (Acidophilus chewable tablet) rye grass extract 500 mg-quercetin tab PO 08/17/21 06/18/24 Unknown History 250 mg tablet (Prostate PQ) albuterol sulfate 90 mcg/actuation 2 puff inhalation Q6H PRN wheezing 03/01/22 11/20/24 Unknown History aerosol inhaler cholecalciferol (vitamin D3) 50 50 mcg PO DAILY 03/01/22 11/20/24 Unknown History mcg (2,000 unit) capsule fluticasone propionate 50 spray intranasal 03/01/22 06/18/24 Unknown History mcg/actuation nasal spray,suspension meclizine 25 mg tablet 25 mg PO TID PRN Vertigo 03/01/22 11/20/24 Unknown History melatonin 3 mg capsule 3 mg PO BEDTIME PRN Insomnia 08/17/22 11/20/24 Unknown History triamcinolone acetonide 0.1 % 1 appl topical BID-TID 12/19/23 11/20/24 Unknown History topical cream atorvastatin 10 mg tablet 10 mg PO DAILY 11/20/24 11/20/24 Unknown History Exam Airway Mallampati Class: II TM Dist: >3cm Neck ROM: Full Heart: rrr Lungs: cta Assessment and Plan Assessment Anesthesia Assessment: Anesthesia Plan Discussed Final Anesthetic Review Family History of Problems with Anesthesia: No History of Problems with Anesthesia: No NPO: Yes ASA Class: II Final Preanesthetic Review: No Changes in Pt Med Stat, Meds/Allgs Chart Reviewed and Consent Obtained/Reviewed Patient Risk: Low Procedure Risk: Low Anesthetic Plan Anesthetic Plan: MAC:
[2024-11-20 13:09] VITALS: BMI 24.8
[2024-11-20] MEDS: Lactated Ringers 1,000 ML 100 ML IVCONT (13:18)
[2024-11-20 13:24] VITALS: BP 131/77; PULSE 79; RESP 18; TEMP 36.8; O2SAT 98
--- NOTE | 2024-11-20 15:20 | MHC.SHP ---
Pre-Procedural Eval Section A - 24 Hr Update-Section A only Date of Service: 11/20/24 The patient is an INPATIENT: No The patient has been examined within 24 hours of the surgical procedure. The History & Physical has been completed within 30 days and I have reviewed it.: No Section B - Complete if H&P > 30 days Chief Complaint: IBD Relevant Family History (Specify if Yes): No Relevant Social History: None Present Medications: see Short Stay Collaborative assessment Medical History: Significant History (GERD, IBD, asthma) History of Previous Operations: Relevant previous surgery/procedure and date(s) (History of colonoscopy) Allergies: Allergies Allergy/AdvReac Type Severity Reaction Status Date / Time No Known Allergies Allergy Verified 11/20/24 13:12 Review of Systems Sugical H&P ROS: Negative: Constitution, Cardiovascular, Respiratory and Gastrointestinal Exam Surgical H&P Exam: Normal: Heart, Normal: Lungs, Normal: Extremities and Normal: Abdomen Plan Diagnosis/Plan: Unchanged I have reviewed the history and physical and performed a pertinent physical examination on my patient. No changes have occurred unless specified. Time Spent With Patient Time: Total time managing care of this patient today ____ minutes.
--- NOTE | 2024-11-20 16:07 | HO.OPN-COLON ---
Colonoscopy Operative Note Operative Note Date of Service: 11/20/24 Narrative: COLONOSCOPY TILL CECUM WITH SURVEILLANCE BIOPSIES Pre-op diagnosis: IBD surveillance. Post-op diagnosis:? Inactive IBD, Diverticulosis, hemorrhoids Endoscopist:? Madiha Mercer MD Anesthesia:?MAC Consent: Indications for the procedure and potential complications of bleeding, perforation, reaction to medications and missed diagnosis were discussed with the patient and informed consent was obtained. Instrument: Olympus PCF H 190 L variable stiffness pediatric colonoscope Monitoring: Vital signs and clinical assessment, intermittent blood pressure monitoring, continuous EKG monitoring, Pulse oximetry and Carbon Dioxide monitoring were done throughout the procedure. Please see anesthesia flowsheet. Colon withdrawl time was 18 minutes. Procedure: The patient was placed in the left lateral decubitis position and pre-procedure medications were administered. After a digital rectal examination of the ano-rectum, the video colonoscope was inserted into the rectum and advanced through the colon to the cecum. The colonoscope was slowly withdrawn in a retrograde panoramic fashion and the colon mucosa was carefully examined including a retroflexed view of the rectum. Findings and interventions are described below. Procedure Difficulty: without difficulty Findings: Terminal Ileum: distal 3-4 cms was visualized and appeared normal Cecum: Patchy erythema due to inactive IBD Ascending Colon: Patchy erythema due to inactive IBD Transverse Colon: Patchy erythema due to inactive IBD Descending Colon: Patchy erythema due to inactive IBD Sigmoid Colon: Patchy erythema due to inactive IBD Moderate diverticulosis Rectum: Patchy erythema due to inactive IBD Ano-rectum: Moderate internal hemorrhoids Colon preparation: Excellent after some irrigation. [place] Bowel Preparation Scale Right colon; 3 Transverse colon: 3 Left colon; 3 (0 = Unprepared colon segment with mucosa not seen due to solid stool that cannot be cleared. 1 = Portion of mucosa of the colon segment seen, but other areas of the colon segment not well seen due to staining, residual stool and/or opaque liquid. 2 = Minor amount of residual staining, small fragments of stool and/or opaque liquid, but mucosa of colon segment seen well. 3 = Entire mucosa of colon segment seen well with no residual staining, small fragments of stool or opaque liquid) Impression and Post Procedure Diagnosis: Colonoscopy Findings: No polyps were detected Patchy erythema due to inactive IBD - surveillance biopsies were obtained. Moderate diverticulosis seen in the sigmoid colon Moderate hemorrhoids on retroflexed exam. Plan: Pt has a FU appointment on 12/17/[address] Mercer Repeat Colonoscopy in 2-3 years if biopsies are normal for IBD surveillance. Above findings were reviewed with the patient and relevant handouts were given and the discharge area.
[2024-11-20 16:12] VITALS: BP 108/61; PULSE 78; RESP 16; TEMP 36.1
[2024-11-20 16:25] VITALS: BP 91/66; PULSE 78; RESP 16; O2SAT 98
[2024-11-20 16:42] VITALS: BP 112/76; PULSE 74; RESP 16; TEMP 36.5; O2SAT 100
== END 2024-11-20 16:46 | disposition home or self-care (01) ==
PROVIDERS: PCP Family Medicine; Visit Provider Internal Medicine Gastroenterology
PROC: 0DJD8ZZ Inspection of Lower Intestinal Tract, Via Natural or Artificial Opening Endoscopic (ICD-10-PCS; CPT 45378; principal; 2024-11-20 13:50)
DX: K58.9 Irritable bowel syndrome, unspecified (principal); K57.30 Diverticulosis of large intestine without perforation or abscess without bleeding; K64.8 Other hemorrhoids; R79.89 Other specified abnormal findings of blood chemistry; E78.00 Pure hypercholesterolemia, unspecified; J45.909 Unspecified asthma, uncomplicated; K21.9 Gastro-esophageal reflux disease without esophagitis; K82.4 Cholesterolosis of gallbladder
CPT/HCPCS: 45380; 88305; J2003; J2704

== ENCOUNTER → 2024-11-20 11:54 | Outpatient (BNV) | payer BC, SELFPAY | PROVIDERS: PCP Family Medicine; Visit Provider Internal Medicine Gastroenterology | DX: Z12.11 Encounter for screening for malignant neoplasm of colon (principal); K57.90 Diverticulosis of intestine, part unspecified, without perforation or abscess without bleeding; K64.8 Other hemorrhoids; K51.90 Ulcerative colitis, unspecified, without complications | CPT/HCPCS: 45378 ==

== ENCOUNTER 2024-12-17 08:52 | Outpatient (AMB) | payer BC, SELFPAY ==
--- NOTE | 2024-12-17 08:54 | A.OFFVIS_ITS ---
Intake Visit Reasons: IBD & COLO POST OP F/U Intake Note: Ziggy presents as a telehealth follow up for IBD and colonoscopy post op. CC: States that he is still having LLQ pains but no bleeding or irregular bowel movements. 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 Allergies No Known Allergies Allergy (Verified 12/17/24 08:55) Medication List - Last Reconciled 12/17/24 by Madiha Mercer MD albuterol sulfate 90 mcg/actuation 2 puffs inhalation Q6H PRN atorvastatin 10 mg PO DAILY cholecalciferol (vitamin D3) 50 mcg PO DAILY dicyclomine 20 mg PO TID PRN 30 days ferrous sulfate (FeroSul) mg PO fluticasone propionate 50 mcg/actuation sprays intranasal Lactobacillus acidophilus (Acidophilus chewable tablet) 1 tab PO DAILY meclizine 25 mg PO TID PRN melatonin 3 mg PO BEDTIME PRN mesalamine 3.6 grams (3 x 1.2 gram) PO DAILY 90 days rye grass extract-quercetin 500-250 mg (Prostate PQ) tabs PO triamcinolone acetonide 0.1% 1 appl topical BID-TID HPI HPI IBD & COLO POST OP F/U: Details: Telemedicine visit for this 54-year-old male for FU of IBD and elevated LFTs to discuss colonoscopy results. ?TODAY'S VISIT Ziggy presents as a telehealth follow up for IBD and colonoscopy post op. CC: States that he is still having LLQ pains but no bleeding or irregular bowel movements. Colonoscopy results were reviewed. Notes LLQ pain - woke up and felt pain and feels OK after he ate something. Has a soft BM every morning without any blood. Has dinner at 9 pm and sleeps a 10 or 11 pm - advised to take a small snack at bedtime Started ferrous sulfate 3 weeks ago for iron deficiency. PAST VISIT: I feel good, I have not had any diarrhea Can have intermittent abdominal pain when he is hungry. Abd pain resolves after he eats. Has a fungal infection in his fingers and advised Terbinafen 250 mg once a day - informed there is no interaction with mesalamine He will need LFTs checked during treatment by Dermatology Patient cc: left middle abdominal pain, denies any other GI issues. Went to her sister's house last week and was painting her window Meal pattern changed Noted constant 8/10 LLQ and sometimes RLQ pain Notes increased pain when he wakes up and radiates to the back. Unable to walk straight for a few days Abd pain has improved to 4/10 Pain is getting better BMs are normal - denies diarrhea or rectal bleeding Seen by PCP and had labs and Abd US. On November 19 attended his sister's BD and overate and felt bad in the stomach and took liquids x 1 day and felt fine Doing Ok since then. Occasional left sided abdominal pain and sometimes on the right side. Lab results reviewed - normal except minimal increase in ALT to 43 and advised to monitor Stopped taking atorvastatin 6 months ago due to dizziness and fatigue and feeling better. Had dizziness and chest pain Evaluated by a stress test which was negative Still has intermittent chest pain which resolves after he eats Taking atorvastatin, mesalamine and supplements Notes intermittent LLQ pain, has left abd discomfort when he moves his left leg. Has a soft BM daily. Notes some blood once in a while if he eats something spicy Taking Mesalamine 2 cap in the morning and one at night Pt denies diarrhea. Taking mesalamine 2 tab in the am and one tab at bedtime Sometimes he feels pain when he is hungry. He had some food with coconut milk and stomach did not feel good (did not have diarrhea) he notes some pain on the left side when he twists his body and pt was reassured that it is likely muscular pain. Stool is yellow, soft and formed and has one BM daily in the morning. Not taking TUMS for acid reflux. Had one episode when he did not have a BM x 1 day. Had a loose BM the following day. Doing good. Sometimes has a burning pain on the left side. Taking melatonin at bedtime to help him sleep at night. Stopped diphenhydramine due to increase in blood pressure Feels Ok without diarrhea or constipation. Has a soft BM one to 2 times a days. 01/29/22 he felt dizzy after lifting a heavy pipe.He was seen at [facility] and being evaluated by Neurology specializing in dizziness (has an appt in May, 2022) Seen by ENT and diagnosed with a balance problem Has an appt with PT on 03/07/22 He was on leave and returned to work today. Taking Vitamin D 2000 units daily. Has been taking Mesalamine 4 tablets daily since earlier this year. Taking a MVI prescribed by the urologist. Doing good. Feels pain if he is hungry. Sometimes takes TUMs for acid Denies diarrhea or constipation. Sometimes feels hungry and feels his stomach is boiling. Taking Mesalamine 4 tab daily x past 4 months. Had dizziness a few days ago and had a low blood pressure. January, - He was Hospitalized at [facility] ([place] with dizziness. Evaluated with a CT scan and MRI x 2 and diagnosed with Migraine MCDONNELL's Under increased stress since he bought a house and & daughter moved to the from the [facility]. Taking 4 tablets of Lialda daily and having one BM a day without blood. Dizziness attributed to eye problems. Stopped taking Vitamin D since he is taking an MVI with Vitamin D Taking Lialda every other day for the past 3 months and doing well - feels normal. Avoiding spicy foods. Feels a little pain if he is hungry Having one BM daily. Had COVID vaccine ([employer]) a few? days ago ?Patient cc: abdominal pain on and off, dizziness and pain on back of his head. Denies any other GI symptoms. ? Has a BM when he wakes up. ? Has breakfast followed by another BM, then Ok the rest of the day. ? Notes abdominal pain only when he is hungry and eats a little bit late. ? Is fine after he eats some bread. ? Notes some rectal bleeding after he took aspirin - attributes to hemorrhoids. ? Has intermittent elevation of blood pressure (140/93) ? Seen in the ER yesterday with neurological symptoms - normal EKG and?MRI LABS:? From [facility] were reviewed: ? 06/14/20 WBC 6.2, HEMOGLOBIN 15.1, HEMATOCRIT 45.1 PLATELETS 242 ? BUN 14, CREATININE 1.09, ALBUMIN 4.1, BILIRUBIN 0.5, ALKALINE PHOSPHATASE 112, AST 37, ALT SLIGHTLY ELEVATED AT 57 (56 IN 07/20) ? LABS IN [facility]: 07/08/19 reviewed ? ESR and CRP have been negative in the past. ? Stool was negative for C diff antigen. ?ENDOSCOPIC STUDIES: NOVEMBER 2018 COLONOSCOPY SHOWED: ? Patchy erythema with aphthoid ulcers in the cecum, TC and distal rectum - likely resolving colitis. ? Biopsies obtained as mentioned above. Since patient has patchy inflammation, he ? likely has Crohn's disease versus partially treated UC. ? A few aphthoid ulcers in the TI likely back wash ileitis evrsus Crohn's disease ? - biopsied. ? Moderate hemorrhoids on retroflexed exam. ? Plan: ? Await pathology results ? Change Asacol to Lialda 4.8 gms once daily ? Patient has an appointment on 12/26/18 in the GI Clinic with Madiha Mercer M.D. ? Start surveillance colonoscopy for colorectal cancer screening in 5 years if no dysplasia on biopsies. ? A. Small bowel, biopsy: Focal active ileitis; no chronic injury seen. ? B. Colon, cecum, biopsy: Chronic, mildly active, colitis. ? C. Colon, ascending, biopsy: Colonic mucosa within normal limits. ? D. Colon, left, biopsy: Colonic mucosa within normal limits. 07/23/2017: Colonoscopy report from [facility] (in the[facility] was reviewed:?Focal ulceration at the terminal ileum.? Diffusely edematous mucosa with multiple mucosal breaks with exudates was noted? in the cecum and 40 cms from the anal verge down to the? rectum. ?Hemorrhoida vessels above the dentate line were? engorged. ?Biopsies from TI showed Acute and chronic ileitis with focal? area suspicious for granulomatous inflammation. ?Biopsies from the? colon showed chronic non-specific colitis. ?Stool test was negative for? O & P and positive for ABC and occult blood PFSH Medical History Asthma Vertigo Hypercholesteremia IBD (inflammatory bowel disease) Surgical History History of colonoscopy Family History Father No problems noted. Mother Family history of high blood pressure Social History Are you a primary primary care provider to a significant other at home: No Do you presently have visiting nurse or other home services: No Alcohol intake: never Patient Tobacco Use Status: Never used Tobacco Review of Systems Const All systems reviewed & are unremarkable except as noted in HPI and below Telehealth Telehealth Telehealth Platform: Telephone Location of provider rendering services: practice address Location of patient: address on file Patient Identification confirmed using: Name, : Yes Telehealth method: voice only Patient verbally consented to treatment: Yes Patient verbally consented to billing insurance company: Yes Patient informed of any privacy concerns related to visit: Yes Minutes spent on Phone/Video with Pt.: 15 Assessment & Plan Assessment & Plan (1) IBD (inflammatory bowel disease): Code(s): K52.9 - Noninfective gastroenteritis and colitis, unspecified Category: Medical (2) GERD (gastroesophageal reflux disease): Code(s): K21.9 - Gastro-esophageal reflux disease without esophagitis Category: Medical (3) Elevated LFTs: Code(s): R79.89 - Other specified abnormal findings of blood chemistry Category: Medical (4) Left sided abdominal pain: Code(s): R10.9 - Unspecified abdominal pain Category: Medical (5) Gallbladder polyp: Code(s): K82.4 - Cholesterolosis of gallbladder Category: Medical Plan 54 year old [place] male with GERD and asthma diagnosed with colitis on colonoscopy in Jul, 2017 in the [facility]. Patient notes improvement in his symptoms with Mesalamine and prednisone and recurrent pain and diarrhea when he stops these medications. Colonoscopy in 11/2018 showed patchy inflammation of the TI, cecum and left colon and distal rectum suggestive of Crohn's disease versus partially treated UC with backwash ileitis. Biopsies showed Focal active ileitis; no chronic injury seen and chronic, mildly active, colitis without granulomas. Labs revealed normal sed rate and CRP. Fecal calprotectin was elevated at 135.8. IBD serologies were not consistent with IBD. Pt notes association of abdominal pain with stress suggesting he may have associated IBS. Pt was switched to high dose Lialda 4.8 grams daily(due to coverage issues for Asacol) with improvement in symptoms of colitis. Patient had tachycardia, palpitations and elevated LFTs felt to be due to high- dose Lialda and dose was decreased. He was advised to start azathioprine 50 mg once a day and did not start taking it due to concern for side effects. He notes improvement in his symptoms and resolution of diarrhea and rectal bleeding. He complains of headache and dizziness, which resolved after he decreased Lialda to one tablet a day - MCDONNELL due to Migraine & dizziness due to eye problems. He changed his diet and is taking a healthier diet with avocados and bananas. Being worked up for dizziness. Pt is taking Lialda 4 tablets daily at present and labs showed slightly elevated transaminases. 08/17/22 He was advised to decrease dose to Lialda to 3 tablets daily and Repeat Labs in 1?month . 10/2022 calprotectin was 7. 12/27/22 Pt advised to continue on Lialda 2 tablets in the morning and 1 at night and have repeat labs in 6 months 06/13/23 Notes some blood once in a while if he eats something spicy Taking Mesalamine 2 cap in the morning and one at night 02/20/24 Went to her sister's house last week and was painting her window Meal pattern changed Noted constant 8/10 LLQ and sometimes RLQ pain - pain is different from abd pain associated with IBD flares in the past Notes increased pain when he wakes up and radiates to the back. Unable to walk straight for a few days Abd pain has improved to 4/10 Pt reassured - pain is likely musculoskeletal in etiology associated with excessive physical work. Pt had labs checked by PCP - normal CBC and LFTs and mildly elevated sed rate of 22 Abd US showed small GB polyps Pt advised to have a fecal calprotectin checked. 06/18/24 Lab results reviewed Can have intermittent abdominal pain when he is hungry. Abd pain resolves after he eats. 11/20/24 COLONOSCOPY SHOWED: Colonoscopy Findings: No polyps were detected Patchy erythema due to inactive IBD - surveillance biopsies were obtained. Moderate diverticulosis seen in the sigmoid colon Moderate hemorrhoids on retroflexed exam. Plan: Repeat Colonoscopy in 2-3 years if biopsies are normal for IBD surveillance. BIOPSIES SHOWED: A. Colon, cecum, biopsy: Colonic mucosa with lymphoid aggregates and no specific change; no colitis, granulomas or dysplasia. B. Colon, at 60-70 cm, biopsy: Colonic mucosa with lymphoid aggregates and no specific change; no colitis, granulomas or dysplasia. C. Colon, at 40-50 cm, biopsy: Colonic mucosa with lymphoid aggregates and minor crypt distortion, otherwise no specific change; no colitis, granulomas or dysplasia. D. Colon, at 20-30 cm, biopsy: Colonic mucosa with lymphoid aggregates and no specific change; no colitis, granulomas or dysplasia. E. Colon, at 10 cm, biopsy: Colonic mucosa with lymphoid aggregates, minor fibrosis, and minor crypt distortion, otherwise no specific change; no colitis, granulomas or dysplasia. Letter sent to the patient with biopsy results. Patient was placed on the colonoscopy recall list for repeat colonoscopy in 2 years. 12/17/24 Pt advised to continue mesalamine and use dicyclomine p.r.n. for abdominal pain. FU telehealth or clinic appointment in 6 months Orders: Orders Complete Blood Count no Diff Today K52.9 - Noninfective gastroenteritis and colitis, unspecified Liver Panel Today K52.9 - Noninfective gastroenteritis and colitis, unspecified C Reactive Protein Today K52.9 - Noninfective gastroenteritis and colitis, unspecified Coding Level of Care Code Tele Est Pt Level 3 (71518) Diagnoses IBD (inflammatory bowel disease) K52.9 GERD (gastroesophageal reflux disease) K21.9 Elevated LFTs R79.89 Left sided abdominal pain R10.9 Gallbladder polyp K82.4
--- OUTSIDE RECORDS SUMMARY | 2024-12-17 09:21 | XMS_ITS ---
Author Name [facility] Organization Unknown Results Test Name/Text Value Interpretation Date Range Source Comment HGB Elect See Note [facility] Hemoglobin A 96.2% [id number] - [facility] Hemoglobin F 1% [id number] - [facility] Hemoglobin A2 2.8% [id number] - [facility] Red Blood Cell Morphology Normal [facility] History of Medication Use Medication Directions Dispensed Refills Start Date End Date Stat ferrous sulfate 325 (65 FE) MG tablet Take 1 (one) tablet (325 mg total) by mouth once daily. Take with vitamin C. Avoid taking with calcium, dairy, or antacids. 11/02/2024 active meclizine (ANTIVERT) 25 mg tablet Take 0.5 (half) tablet to 1 (one) tablet (12.5-25 mg total) by mouth 3 (three) times a day as needed (vertigo). 08/04/2024 active rizatriptan (MAXALT-ADMINISTRATION PHYSICIAN) 10 MG disintegrating tablet Dissolve 1 (one) tablet (10 mg total) by mouth as needed (migraine). 08/04/2024 active triamcinolone (KENALOG) 0.1 % cream Apply topically 2 (two) times a day. 05/20/2024 active atorvastatin (LIPITOR) 10 MG tablet Take 1 (one) tablet (10 mg total) by mouth at bedtime. 04/06/2024 active acetaminophen (TYLENOL) 500 MG tablet Take 1 (one) tablet (500 mg total) by mouth every 6 (six) hours. 03/06/2020 active mesalamine (LIALDA) 1.2 gram enteric coated tablet Take 2 (two) tablets (2.4 g total) by mouth once daily. active rye grass extract/quercetin (PROSTATE PQ ORAL) Prostate PQ activ e vitamin D3-vitamin K2 1,250-200 mcg cap VITAMIN D -3 activ e Problems Problem Status Onset Date Problem Type Date of Resolution Source Low mean corpuscular volume (MCV) active EncounterDiagnosisAct [facility] Nonintractable episodic headache, unspecified headache type active EncounterDiagnosisAct [facility] Abnormal CBC active EncounterDiagnosisAct [facility] Dysarthria active 2020-03-05 ProblemAct [facility] Migraine active 2024-08-04 ProblemAct [facility] Dermatophytosis of nail active EncounterDiagnosisAct [facility] Dyshidrotic hand dermatitis active 2024-05-20 ProblemAct [facility] Dizziness active 2024-08-04 ProblemAct [facility] Immunizations Vaccine Date Source Lot Number Status Influenza TIV Preservative Free (IM) 05/20/2024 [facility] [id number] completed Td Preservative Free 05/20/2024 [facility] [id number] comp leted Influenza Quad Preservative and Antibiotic Free 05/01/2022 [facility] [id number] completed [employer] COVID-19 Vaccine (Gre y), mRNA, LNP-S, PF, 30 mcg/0.3 mL dose 10/07/2021 [facility] [id number] co mpleted PFIZER COVID-19 Vaccine (Pur ple), mRNA, LNP-S, PF, 30 mcg/0.3 mL dose 10/07/2021 [facility] co mpleted Influenza Quadrivalent Prese rvative Free (IM) 04/25/2021 [facility] [id number] completed Influenza Quadrivalent Multi Dose 05/12/2019 [facility] [id number] completed Influenza Quadrivalent Prese rvative Free (IM) 05/12/2019 [facility] completed Influenza Quadrivalent Prese rvative Free (IM) 04/20/2019 [facility] completed Pneumococcal Polysaccharide 09/15/2018 [facility] [id number] completed Td Adsorbed 09/11/2017 [facility] completed Td Preservative Free 09/11/2017 [facility] comp leted Encounters Encounter Type Encounter Reason Primary Diagnosis Location Date Ambulatory Abnormal CBC Abnormal CBC [facility] 10/28/2024 Ambulatory Migraine without status migrainosus, not intractable, unspecified migraine type Migraine without status migrainosus, not intractable, unspecified migraine type [facility] 10/23/2024 Care Team Organization Name Specialty Phone Email Start Date End Da te [facility] Primary [facility] 11/12/19 [facility] Primary [facility] 11/03/2024 [facility] 11/03/2024 [facility] Primary Care 11/01/2024
== END 2024-12-17 09:37 | disposition home or self-care (01) ==
LOC: HO.HGI 08:52
PROVIDERS: PCP Family Medicine; Visit Provider Internal Medicine Gastroenterology
DX: K52.9 Noninfective gastroenteritis and colitis, unspecified (principal); K21.9 Gastro-esophageal reflux disease without esophagitis; R79.89 Other specified abnormal findings of blood chemistry; R10.9 Unspecified abdominal pain; K82.4 Cholesterolosis of gallbladder
CPT/HCPCS: 99213

== ENCOUNTER 2025-06-08 11:43 | Outpatient (REF) | payer BC, SELFPAY ==
[2025-06-08 12:13] LABS: MANUAL DIFF FLAG NO
[2025-06-08 12:32] LABS: Hematocrit 47.1 % (42.0-52.0); Hemoglobin 15.0 g/dl (14.0-18.0); Imm Gran Abs Auto 0.03 X10*3/uL (0.00-0.03); Imm Gran Pct Auto 0.4 % (0.0-0.4); Lymphocytes Absolute Auto 1.8 X10*3/uL (1.2-4.9); Mean Corpuscular HGB Conc 31.8 g/dl (31.0-36.0); Mean Corpuscular Hemoglobin 26.0 pg (27.0-33.0); Mean Corpuscular Volume 81.6 fL (80.0-98.0); NRBC Abs Auto 0.000 X10*3/uL (0.0-0.012); NRBC Pct Auto 0.0 /100WBC (0.0-0.2); Platelet Count 246 X10*3/uL (160-400); Red Blood Count 5.77 X10*6/uL (4.60-5.80); White Blood Count 6.8 X10*3/uL (4.8-10.8)
[2025-06-08 12:59] LABS: Alanine Aminotransferase 81 U/L (0-40); Albumin Level 4.7 g/dL (3.5-5.0); Alkaline Phosphatase 126 U/L (39-117); Aspartate Amino Transferase 40 U/L (5-37); Total Protein 8.0 g/dL (6.5-8.0)
== END 2025-06-08 11:44 ==
LOC: HO.LAB 11:43
PROVIDERS: PCP Family Medicine; Visit Provider Internal Medicine Gastroenterology
DX: Z13.0 Encounter for screening for diseases of the blood and blood-forming organs and certain disorders involving the immune mechanism (principal); K52.9 Noninfective gastroenteritis and colitis, unspecified
CPT/HCPCS: 36415; 80076; 85025; 85027; 86140

== ENCOUNTER 2025-06-17 08:04 | Outpatient (AMB) | payer BC, SELFPAY ==
--- OUTSIDE RECORDS SUMMARY | 2025-06-11 15:39 | XMS_ITS | Encounter Summary ---
Author Organization [facility] Address [address] [place] [address] Care Team Providers Care Pulp Grinder Feeder Name Role Phone Taylor Maldonado MD Primary Care Provider [phone] Encounter Details Date Type Department Care Team (Latest Contact Info) Description 06/11/2025 3:39 PM EST Hospital Encounter [facility] [address] [place] [address] Zakia Earl, [place] [address] [place] [address] Screening for colon cancer; Low mean corpuscular volume (MCV); Iron deficiency Social History Tobacco Use Types Packs/Day Years Used Date Smoking Tobacco: Never Smokeless Tobacco: Never Alcohol Use Standard Drinks/Week Comments Not Currently 0 (1 standard drink = 0.6 oz pur e alcohol) [facility] Utilities Answer Date Recorded In the past 12 months has e electric, gas, oil, or water [employer] threatened to shut off services in your [...] often do you attend chur ch or restorationism services? More than 4 times per year 10/23/2024 Do you belong to any clubs o r organizations such as mosque groups, unions, fraternal or athletic groups, or [...] Health Questionnaire-2 Score for SDOH 0 10/23/2024 Hunger Vital Sign Answer Date Recorded [...] any time in the past 12 m [facility], were you homeless or living in a long-term (including now)? No 10/23/2024 Substance Use Answer [...] Care Team (Late st Contact Info) Description 12/28/2025 9:15 AM EDT Office Visit [facility] [address] [place] [phone] Taylor Maldonado MD [address] [place] [address] documented as of this encounter Procedures Procedure Name Priority Date/Time Associated Diagnosis Comments COLORECTAL SCREENING BY FIT Routine 06/11/2025 3:39 PM EST Screening for colon cancer Low mean corpuscular volume (MCV) Iron deficiency documented in this encounter Results * Colorectal Screening by FIT (06/11/2025 3:39 PM EST) Pathologist [facility] Colorectal Screening by FIT Negative Negative 06/14/2025 9:08 AM EST [facility] 06/11/2025 3:39 PM EST 06/11/2025 7:26 PM EST us Zakia [facility] BLOOD ORDERABLES Final Resul t [facility] [address] [place] [address] documented in this encounter Visit Diagnoses Diagnosis Screening for colon cancer Special screening for malignant neoplasms, colon Low mean corpuscular volume (MCV) Iron deficiency Disorders of iron metabolism documented in this encounter Care Teams Pulp Grinder Feeder Relationship Specialty Start Date End Date Taylor Maldonado MD [address] [place] [address] PCP - General Internal Medicine 03/05/20 documented as of this encounter
--- NOTE | 2025-06-17 08:06 | A.OFFVIS_ITS ---
Intake Visit Reasons: 6m f/u LFTs GERD gallbladder polyp IBD Intake Note: Patient telehealth 6m f/u LFTs, GERD and gallbladder polyp IBD, no lab results Patient cc: Patient states that he is not having any concerns and that this is just a follow up. Control Clerk Food And Beverage Required: No Allergies No Known Allergies Allergy (Verified 12/17/24 08:55) Medication List - Last Reconciled 06/17/25 by Madiha Mercer MD albuterol sulfate 90 mcg/actuation 2 puffs inhalation Q6H PRN atorvastatin 10 mg PO DAILY cholecalciferol (vitamin D3) 50 mcg PO DAILY dicyclomine 20 mg PO TID PRN 30 days ferrous sulfate (FeroSul) mg PO fluticasone propionate 50 mcg/actuation sprays intranasal Lactobacillus acidophilus (Acidophilus chewable tablet) 1 tab PO DAILY meclizine 25 mg PO TID PRN melatonin 3 mg PO BEDTIME PRN mesalamine 3.6 grams (3 x 1.2 gram) PO DAILY 90 days rye grass extract-quercetin 500-250 mg (Prostate PQ) tabs PO triamcinolone acetonide 0.1% 1 appl topical BID-TID HPI HPI 6m f/u LFTs GERD gallbladder polyp IBD: Details: Telemedicine visit for this 54-year-old male for FU of IBD and elevated LFTs to discuss colonoscopy results. TODAY'S VISIT Patient telehealth 6m f/u LFTs, GERD and gallbladder polyp IBD, no lab results Patient states that he is not having any concerns and that this is just a follow up. Doing Ok denies any diarrhea, notes intermittent LLQ pain. PAST VISIT: Colonoscopy results were reviewed. Notes LLQ pain - woke up and felt pain and feels OK after he ate something. Has a soft BM every morning without any blood. Has dinner at 9 pm and sleeps a 10 or 11 pm - advised to take a small snack at bedtime Started ferrous sulfate 3 weeks ago for iron deficiency. I feel good, I have not had any diarrhea Can have intermittent abdominal pain when he is hungry. Abd pain resolves after he eats. Has a fungal infection in his fingers and advised Terbinafen 250 mg once a day - informed there is no interaction with mesalamine He will need LFTs checked during treatment by Dermatology Patient cc: left middle abdominal pain, denies any other GI issues. Went to her sister's house last week and was painting her window Meal pattern changed Noted constant 8/10 LLQ and sometimes RLQ pain Notes increased pain when he wakes up and radiates to the back. Unable to walk straight for a few days Abd pain has improved to 4/10 Pain is getting better BMs are normal - denies diarrhea or rectal bleeding Seen by PCP and had labs and Abd US. On November 19 attended his sister's BD and overate and felt bad in the stomach and took liquids x 1 day and felt fine Doing Ok since then. Occasional left sided abdominal pain and sometimes on the right side. Lab results reviewed - normal except minimal increase in ALT to 43 and advised to monitor Stopped taking atorvastatin 6 months ago due to dizziness and fatigue and feeling better. Had dizziness and chest pain Evaluated by a stress test which was negative Still has intermittent chest pain which resolves after he eats Taking atorvastatin, mesalamine and supplements Notes intermittent LLQ pain, has left abd discomfort when he moves his left leg. Has a soft BM daily. Notes some blood once in a while if he eats something spicy Taking Mesalamine 2 cap in the morning and one at night Pt denies diarrhea. Taking mesalamine 2 tab in the am and one tab at bedtime Sometimes he feels pain when he is hungry. He had some food with coconut milk and stomach did not feel good (did not have diarrhea) he notes some pain on the left side when he twists his body and pt was reassured that it is likely muscular pain. Stool is yellow, soft and formed and has one BM daily in the morning. Not taking TUMS for acid reflux. Had one episode when he did not have a BM x 1 day. Had a loose BM the following day. Doing good. Sometimes has a burning pain on the left side. Taking melatonin at bedtime to help him sleep at night. Stopped diphenhydramine due to increase in blood pressure Feels Ok without diarrhea or constipation. Has a soft BM one to 2 times a days. 01/29/22 he felt dizzy after lifting a heavy pipe.He was seen at [facility] and being evaluated by Neurology specializing in dizziness (has an appt in May, 2022) Seen by ENT and diagnosed with a balance problem Has an appt with PT on 03/07/22 He was on leave and returned to work today. Taking Vitamin D 2000 units daily. Has been taking Mesalamine 4 tablets daily since earlier this year. Taking a MVI prescribed by the urologist. Doing good. Feels pain if he is hungry. Sometimes takes TUMs for acid Denies diarrhea or constipation. Sometimes feels hungry and feels his stomach is boiling. Taking Mesalamine 4 tab daily x past 4 months. Had dizziness a few days ago and had a low blood pressure. January, - He was Hospitalized at [facility]) with dizziness. Evaluated with a CT scan and MRI x 2 and diagnosed with Migraine MCDONNELL's Under increased stress since he bought a house and & daughter moved to the from the [facility]. Taking 4 tablets of Lialda daily and having one BM a day without blood. Dizziness attributed to eye problems. Stopped taking Vitamin D since he is taking an MVI with Vitamin D Taking Lialda every other day for the past 3 months and doing well - feels normal. Avoiding spicy foods. Feels a little pain if he is hungry Having one BM daily. Had COVID vaccine ([employer]) a few? days ago ?Patient cc: abdominal pain on and off, dizziness and pain on back of his head. Denies any other GI symptoms. ? Has a BM when he wakes up. ? Has breakfast followed by another BM, then Ok the rest of the day. ? Notes abdominal pain only when he is hungry and eats a little bit late. ? Is fine after he eats some bread. ? Notes some rectal bleeding after he took aspirin - attributes to hemorrhoids. ? Has intermittent elevation of blood pressure (140/93) ? Seen in the ER yesterday with neurological symptoms - normal EKG and?MRI LABS:? From [facility] were reviewed: ? 06/14/20 WBC 6.2, HEMOGLOBIN 15.1, HEMATOCRIT 45.1 PLATELETS 242 ? BUN 14, CREATININE 1.09, ALBUMIN 4.1, BILIRUBIN 0.5, ALKALINE PHOSPHATASE 112, AST 37, ALT SLIGHTLY ELEVATED AT 57 (56 IN 07/20) ? [facility] 07[facility] ? ESR and CRP have been negative in the past. ? Stool was negative for C diff antigen. ?ENDOSCOPIC STUDIES: NOVEMBER 2018 COLONOSCOPY SHOWED: ? Patchy erythema with aphthoid ulcers in the cecum, TC and distal rectum - likely resolving colitis. ? Biopsies obtained as mentioned above. Since patient has patchy inflammation, he ? likely has Crohn's disease versus partially treated UC. ? A few aphthoid ulcers in the TI likely back wash ileitis evrsus Crohn's disease ? - biopsied. ? Moderate hemorrhoids on retroflexed exam. ? Plan: ? Await pathology results ? Change Asacol to Lialda 4.8 gms once daily ? Patient has an appointment on 12/26/18 in the GI Clinic with Madiha Mercer M.D. ? Start surveillance colonoscopy for colorectal cancer screening in 5 years if no dysplasia on biopsies. ? A. Small bowel, biopsy: Focal active ileitis; no chronic injury seen. ? B. Colon, cecum, biopsy: Chronic, mildly active, colitis. ? C. Colon, ascending, biopsy: Colonic mucosa within normal limits. ? D. Colon, left, biopsy: Colonic mucosa within normal limits. 07/23/2017: Colonoscopy report from [facility] (in the[facility]) was reviewed:?Focal ulceration at the terminal ileum.? Diffusely edematous mucosa with multiple mucosal breaks with exudates was noted? in the cecum and 40 cms from the anal verge down to the? rectum. ?Hemorrhoida vessels above the dentate line were? engorged. ?Biopsies from TI showed Acute and chronic ileitis with focal? area suspicious for granulomatous inflammation. ?Biopsies from the? colon showed chronic non-specific colitis. ?Stool test was negative for? O & P and positive for ABC and occult blood PFSH Medical History Asthma Vertigo Hypercholesteremia IBD (inflammatory bowel disease) Surgical History History of colonoscopy Family History Father No problems noted. Mother Family history of high blood pressure Social History Are you a primary wound care technician to a significant other at home: No Do you presently have visiting nurse or other home services: No Alcohol intake: never Patient Tobacco Use Status: Never used Tobacco Telehealth Telehealth Telehealth Platform: Telephone Location of provider rendering services: practice address Location of patient: address on file Patient Identification confirmed using: Name, : Yes Telehealth method: voice only Patient verbally consented to treatment: Yes Patient verbally consented to billing insurance company: Yes Patient informed of any privacy concerns related to visit: Yes Minutes spent on Phone/Video with Pt.: 15 Assessment & Plan Assessment & Plan (1) GERD (gastroesophageal reflux disease): Code(s): K21.9 - Gastro-esophageal reflux disease without esophagitis Category: Medical (2) Elevated LFTs: Code(s): R79.89 - Other specified abnormal findings of blood chemistry Category: Medical (3) Gallbladder polyp: Code(s): K82.4 - Cholesterolosis of gallbladder Category: Medical (4) IBD (inflammatory bowel disease): Code(s): K52.9 - Noninfective gastroenteritis and colitis, unspecified Category: Medical (5) Left sided abdominal pain: Code(s): R10.9 - Unspecified abdominal pain Category: Medical (6) Chronic LLQ pain: Code(s): R10.32 - Left lower quadrant pain; G89.29 - Other chronic pain Category: Medical Plan 54 year old [place] male with GERD and asthma diagnosed with colitis on colonoscopy in Jul, 2017 in the [facility]. Patient notes improvement in his symptoms with Mesalamine and prednisone and recurrent pain and diarrhea when he stops these medications. Colonoscopy in 11/2018 showed patchy inflammation of the TI, cecum and left colon and distal rectum suggestive of Crohn's disease versus partially treated UC with backwash ileitis. Biopsies showed Focal active ileitis; no chronic injury seen and chronic, mildly active, colitis without granulomas. Labs revealed normal sed rate and CRP. Fecal calprotectin was elevated at 135.8. IBD serologies were not consistent with IBD. Pt notes association of abdominal pain with stress suggesting he may have associated IBS. Pt was switched to high dose Lialda 4.8 grams daily(due to coverage issues for Asacol) with improvement in symptoms of colitis. Patient had tachycardia, palpitations and elevated LFTs felt to be due to high- dose Lialda and dose was decreased. He was advised to start azathioprine 50 mg once a day and did not start taking it due to concern for side effects. He notes improvement in his symptoms and resolution of diarrhea and rectal bleeding. He complains of headache and dizziness, which resolved after he decreased Lialda to one tablet a day - MCDONNELL due to Migraine & dizziness due to eye problems. He changed his diet and is taking a healthier diet with avocados and bananas. Being worked up for dizziness. Pt is taking Lialda 4 tablets daily at present and labs showed slightly elevated transaminases. 08/17/22 He was advised to decrease dose to Lialda to 3 tablets daily and Repeat Labs in 1?month . 10/2022 calprotectin was 7. 12/27/22 Pt advised to continue on Lialda 2 tablets in the morning and 1 at night and have repeat labs in 6 months 06/13/23 Notes some blood once in a while if he eats something spicy Taking Mesalamine 2 cap in the morning and one at night 02/20/24 Went to her sister's house last week and was painting her window Meal pattern changed Noted constant 8/10 LLQ and sometimes RLQ pain - pain is different from abd pain associated with IBD flares in the past Notes increased pain when he wakes up and radiates to the back. Unable to walk straight for a few days Abd pain has improved to 4/10 Pt reassured - pain is likely musculoskeletal in etiology associated with excessive physical work. Pt had labs checked by PCP - normal CBC and LFTs and mildly elevated sed rate of 22 Abd US showed small GB polyps Pt advised to have a fecal calprotectin checked. 06/18/24 Lab results reviewed Can have intermittent abdominal pain when he is hungry. Abd pain resolves after he eats. 11/20/24 COLONOSCOPY SHOWED: Colonoscopy Findings: No polyps were detected Patchy erythema due to inactive IBD - surveillance biopsies were obtained. Moderate diverticulosis seen in the sigmoid colon Moderate hemorrhoids on retroflexed exam. Plan: Repeat Colonoscopy in 2-3 years if biopsies are normal for IBD surveillance. BIOPSIES SHOWED: A. Colon, cecum, biopsy: Colonic mucosa with lymphoid aggregates and no specific change; no colitis, granulomas or dysplasia. B. Colon, at 60-70 cm, biopsy: Colonic mucosa with lymphoid aggregates and no specific change; no colitis, granulomas or dysplasia. C. Colon, at 40-50 cm, biopsy: Colonic mucosa with lymphoid aggregates and minor crypt distortion, otherwise no specific change; no colitis, granulomas or dysplasia. D. Colon, at 20-30 cm, biopsy: Colonic mucosa with lymphoid aggregates and no specific change; no colitis, granulomas or dysplasia. E. Colon, at 10 cm, biopsy: Colonic mucosa with lymphoid aggregates, minor fibrosis, and minor crypt distortion, otherwise no specific change; no colitis, granulomas or dysplasia. Letter sent to the patient with biopsy results. Patient was placed on the colonoscopy recall list for repeat colonoscopy in 2 years. 12/17/24 Pt advised to continue mesalamine and use dicyclomine p.r.n. for abdominal pain. 06/17/25 Labs showed intermittent elevation of LFTs. Pt advised to schedule an Abd CT scan for evaluation of LLQ pain FU clinic appointment in 4-6 weeks Orders: Orders CT abdomen pelvis w IV con Today G89.29 - Other chronic pain, K52.9 - Noninfective gastroenteritis and colitis, unspecified, R10.32 - Left lower quadrant pain Liver Panel Today R10.9 - Unspecified abdominal pain, R79.89 - Other specified abnormal findings of blood chemistry C Reactive Protein Today R10.9 - Unspecified abdominal pain, R79.89 - Other specified abnormal findings of blood chemistry Coding Level of Care Code Tele Est Pt Level 3 (79573) Diagnoses GERD (gastroesophageal reflux disease) K21.9 Elevated LFTs R79.89 Gallbladder polyp K82.4 IBD (inflammatory bowel disease) K52.9 Left sided abdominal pain R10.9 Chronic LLQ pain R10.32; G89.29 Time Spent (min) 15
--- OUTSIDE RECORDS SUMMARY | 2025-06-17 08:09 | XMS_ITS | Clinical Summary ---
Author Organization [facility] Address [address] [place] [address] Care Team Providers Care Staking Press Operator Name Role Phone Taylor Maldonado MD Primary Care Provider [phone] Allergies No known active allergies Medications mesalamine (LIALDA) 1.2 gram enteric coated tablet Take 2 (two) tablets (2.4 g total) by mouth once daily. Active acetaminophen (TYLENOL) 500 MG tablet Take 1 (one) tablet (500 mg total) by mouth every 6 (six) hours. 30 tablet 0 Active triamcinolone (KENALOG) 0.1 % cream Apply topically 2 (two) times a day. 28.4 g 1 4 Active vitamin D3-vitamin K2 1,250-200 mcg cap VITAMIN D -3 Active rye grass extract/quercetin (PROSTATE PQ ORAL) Prostate PQ Active rizatriptan (MAXALT-VEGETABLE CUTTER) 10 MG disintegrating tablet Dissolve 1 (one) tablet (10 mg total) by mouth as needed (migraine). 10 tablet 1 5 Active meclizine (ANTIVERT) 25 mg tablet Take 0.5 (half) tablet to 1 (one) tablet (12.5-25 mg total) by mouth 3 (three) times a day as needed (vertigo). 20 tablet 5 Active atorvastatin (LIPITOR) 10 MG tablet Take 1 (one) tablet (10 mg total) by mouth at bedtime. 90 tablet 2 Active ferrous sulfate 325 (65 FE) MG tablet Take 1 (one) tablet (325 mg total) by mouth once daily. Take with vitamin C. Avoid taking with calcium, dairy, or antacids. 30 tablet 1 5 Active Active Problems Problem Noted Date Diagnosed Date Functional urinary incontinence 12/21/2024 Glaucoma 12/21/2024 Hyperlipidemia 12/21/2024 Reactive airway disease 12/21/2024 Ulcerative colitis without complications 025 Tension type headache 12/21/2024 Migraine 08/04/2024 Dizziness 08/04/2024 Dyshidrotic hand dermatitis 05/20/2024 Dysarthria 03/05/2020 Resolved Problems Problem Noted Date Diagnosed Date Resolved Date Primary insomnia 12/21/2024 12/21/2024 Encounters Date Type Department Care Team Description 06/11/2025 3:39 PM EST Hospital Encounter [address] [phone] Zakia Earl PA Screening for colon cancer; Low mean corpuscular volume (MCV); Iron deficiency 06/03/2025 2:25 PM EST - 06/03/2025 11:59 PM EST Hospital Encounter [address] [phone] Zakia Earl PA Iron deficiency Discharge Disposition: Home or Self Care 06/03/2025 1:00 PM EST Office Visit [facility], [address] [place] [address] Zakia Earl PA Other chest pain (Primary Dx); Iron deficiency; Low mean corpuscular volume (MCV); Need for vaccination from Last 3 Months Immunizations Name Administration Dates Next Due Influenza Quad Preservative and Antibiotic Free 05/01/2022 Influenza Quadrivalent Multi Dose 05/12/2019 Influenza Quadrivalent Prese rvative Free (IM) 04/25/2021,05/12/2019,04/20/2019 Influenza, split virus, trivalent, PF 06/03/2025 ,05/20/2024 PFIZER COVID-19 Vaccine (Gre y), mRNA, LNP-S, PF, 30 mcg/0.3 mL dose 10/07/2021 PFIZER COVID-19 Vaccine (Pur ple), mRNA, LNP-S, PF, 30 mcg/0.3 mL dose 10/07/2021 Pneumococcal Polysaccharide 09/15/2018 Td Adsorbed 09/11/2017 Td Preservative Free 05/20/2024,09/11/2017 Family History Medical History Relation Name Comments Asthma Brother No known problems Daughter 1 No known problems Daughter 2 Heart disease Father Dementia Mother Diabetes Mother Hypertension Mother Other cancer Sister 1 nasopharyngeal (d/t chalk inhalation in [facility]) Breast cancer Sister 2 Diabetes Sister 2 Relation Name Status Comments Brother Alive Daughter 1 Alive Daughter 2 Alive Father Mother Sister 1 Sister 2 Alive Social History Tobacco Use Types Packs/Day Years Used Date Smoking Tobacco: Never Smokeless Tobacco: Never Tobacco Cessation:Counseling Given: Not Answered Alcohol Use Standard Drinks/Week Comments Not Currently 0 (1 standard drink = 0.6 oz pur e alcohol) [facility] Explaraities Answer Date Recorded In the past 12 months has [facility] [employer], or water [employer] threatened to shut off services in your [...] week 10/23/2024 How often do you attend [facility] or restorationist services? More than 4 times per year 10/23/2024 Do you belong to any clubs o r organizations such as anabaptism groups, unions, fraternal or athletic groups, or [...] any time in the past 12 m [facility], were you homeless or living in a long term (including now)? No 10/23/2024 Substance Use Answer [...] Reading Time Taken Comments Blood Pressure 120/80 06/03/2025 1:11 PM EST Pulse 87 06/03/2025 1:11 PM EST Temperature 36.2 C (97.1 F) 06/03/2025 1:11 PM EST Respiratory Rate 18 02/01/2022 11:29 AM EDT Oxygen Saturation 98% 06/03/2025 1:11 PM EST Inhaled Oxygen Concentration - - Weight 67 kg (147 lb 9.6 oz) 06/03/2025 1:11 PM EST Height 162.6 cm (5' 4 ) 06/03/2025 1:11 PM EST Body Mass Index 25.34 06/03/2025 1:11 PM EST Plan of Treatment Upcoming Encounters Date Type Department Care Team (Late st Contact Info) Description 12/28/2025 9:15 AM EDT [facility] [address] [place] [phone] Taylor Maldonado MD [address] [place] [address] Health Maintenance Due Date Last Done Comments CT COLONOGRAPHY (CRC) 12/17/2015 FIT-DNA (CRC) 12/17/2015 SIGMOIDOSCOPY (CRC) 12/17/2015 PNEUMOCOCCAL VACCINE: 50+ YEARS (2 of 2 - PCV) 09/16/2019 09/15/2018 ZOSTER VACCINE (1 of 2) 2020 COVID-19 IMMUNIZATION (5 - season) 2025 10/07/2021, 10/07/2021, 11/16/2020, Additional history exists FIT/iFOBT (CRC) 06/11/2026 06/11/2025 COLONOSCOPY (CRC) 10/29/2029 10/29/2024, 12/18/2018 COLORECTAL CANCER SCREENING (CRC) 10/29/2029 DTAP/TDAP/TD VACCINES (1 - Tdap) 05/01/2034 05/20/2024, 09/11/2017, 09/11/2017 Postponed from 05/21/2024 (Not Indicated) RSV IMMUNIZATION (1 - 1-dose 75+ series) 2045 HEPATITIS C SCREENING Completed 12/31/2024 INFLUENZA VACCINE Completed 06/03/2025, , 05/01/2022, Additional history exists IPV VACCINES Aged Out [...] Low mean corpuscular volume (MCV) Iron deficiency VENIPUNCTURE ONLY Routine 06/03/2025 2:2 5 PM EST Iron deficiency FERRITIN Routine 06/03/2025 2:25 PM EST Iron deficiency CBC NO DIFF Routine 06/03/2025 2:25 PM EST Iron deficiency ECG 12-LEAD (MIDMARK) Routine 06/03/2025 1:47 PM EST Other chest pain HEPATITIS C ANTIBODY Routine 12/31/2024 11:37 AM EDT Encounter for hepatitis C screening test for low risk patient EXTERNAL FLEXIBLE SIGMOIDOSCOPY Routine 12/18/2018 Routine general medical examination at a health care facility from Last 3 Months or Most Recently Relevant to Health Maintenance Results * Colorectal Screening by FIT (06/11/2025 3:39 PM EST) Colorectal Screening by FIT Negative Negative 06/14/2025 9:08 AM EST [facility] 06/11/2025 3:39 PM EST 06/11/2025 7:26 PM EST us Zakia BAILEY LAB BLOOD ORDERABLES Final Resul t [facility] [address] [place] [address] * (ABNORMAL) CBC No Diff (06/03/2025 2:25 PM EST) WBC 6.8 4.2 - 10.0 [id number]/L 06/03/2025 3:15 PM EST [facility] RBC 5.66(H) 4.50 - 5.60 [id number]/L 06/03/2025 3:15 PM EST [facility] Hemoglobin 15.2 13.4 - 16.0 g/dL 06/03/2025 3:15 PM EST [facility] Hematocrit 46.7 41.2 - 51.0 % 06/03/2025 3:15 PM EST [facility] MCV 82.5(L) 85.2 - 100.2 fL 06/03/2025 3:15 PM EST [facility] MCH 26.9(L) 27.0 - 32.4 pg 06/03/2025 3:15 PM EST [facility] MCHC 32.5 29.5 - 34.2 g/dL 06/03/2025 3:15 PM EST [facility] RDW 12.8 11.8 - 14.4 % 06/03/2025 3:15 PM EST [facility] Platelets 228 168 - 382 [id number]/L 06/03/2025 3:15 PM EST [facility] MPV 11.0 9.6 - 12.5 fL 06/03/2025 3:15 PM EST [facility] NRBC % 0.0 -1.0 - 0.0 % 06/03/2025 3:15 PM EST [facility] NRBC (absolute) 0.0 [id number]/L 3:15 PM EST [facility] 06/03/2025 2:25 PM EST 06/03/2025 2:44 PM EST us Zakia BAILEY LAB BLOOD ORDERABLES Final Resul t Performing Organization Address [facility] de Phone Number [facility] [address] [place] [phone] * Venipuncture Only (06/03/2025 2:25 PM EST) Venipuncture Done 06/03/2025 2:26 PM EST [facility] Blood 06/03/2025 2:25 PM EST 06/03/2025 2:25 PM EST Zakia BAILEY LAB BLOOD ORDERABLES Final Resul t Performing Organization Address [facility] de Phone Number [facility] [address] [place] [phone] * Ferritin (06/03/2025 2:25 PM EST) Pathologist [facility] Ferritin 125 22 - 275 NG/ML 06/03/2025 8:34 PM EST [facility] Blood 06/03/2025 2:25 PM EST 06/03/2025 7:16 PM EST Zakia BAILEY LAB BLOOD ORDERABLES Final Resul t Performing Organization Address [facility] Phone Number [facility] [address] [place] [phone] * ECG 12 Lead (Midmark) (06/03/2025 1:47 PM EST) us Zakia BAILEY ECG ORDERABLES Final Result * Hepatitis C Antibody (12/31/2024 11:37 AM EDT) HCV Ab Qualitative Non Reac Non Reactive 12/31/2024 2:41 PM EDT [facility] Blood 12/31/2024 11:3 7 AM EDT 12/31/2024 12:58 PM EDT us Zakia Earl PA LAB BLOOD ORDERABLES Final Resul t [facility] [address] [place] [address] * External Colonoscopy (12/18/2018) 12/18/2018 us Taylor Maldonado MD LS PROCEDURE ORDERABLES F inal Result from Last 3 Months or Most Recently Relevant to Health Maintenance Insurance [employer] Advance Directives For more information, please contact: [phone] * Full Code (Latest Code Status on File) Date Activated Date Inactivated Comments 03/05/2020 5:42 PM 11/02/2020 12:32 PM Care Teams Staking Press Operator Relationship Specialty Start Date End Date Taylor Maldonado MD [address] [place] [address] PCP - General Internal Medicine 03/05/20
--- OUTSIDE RECORDS SUMMARY | 2025-06-17 08:09 | XMS_ITS ---
Author Name [facility] Unknown Results Test Name/Text Value Interpretation Date Range Source Colorectal Screening by FIT Negative 06/14/2025 - [facility] Ferritin 125.0 NG/ML 06/04/2025 22 - 275 [facility] MPV 11.0 fL 06/03/2025 9.6 - 12.5 [facility] HCT 46.7 % 06/03/2025 41.2 - 51 [facility] NRBC (absolute) 0.0 [id number]/L 06/03/2025 [facility] HGB 15.2 g/dL 06/03/2025 13.4 - 16 [facility] NRBC (percent) 0.0 % 06/03/2025 - [facility] Platelet Count 228.0 [id number]/L 06/03/2025 168 - 382 [facility] MCH 26.9 pg Below low normal 06/03/2025 27 - 32.4 [facility] RBC 5.66 [id number]/L Above high normal 06/03/2025 4.5 - 5.6 [facility] MCHC 32.5 g/dL 06/03/2025 29.5 - 34.2 [facility] RDW 12.8 % 06/03/2025 11.8 - 14.4 [facility] MCV 82.5 fL Below low normal 06/03/2025 85.2 - 100.2 [facility] WBC 6.8 [id number]/L 06/03/2025 4.2 - 10 [facility] Chol HDL Ratio 4.7 03/11/2025 2 - 5 [facility] Non-HDL Cholesterol 136.0 MG/DL 03/11/2025 70 - 15 9 [facility] HDL 37.0 MG/DL Below low normal 03/11/2025 40 - 70 [facility] LDL 100.0 MG/DL 03/11/2025 70 - 129 [facility] Hours Fasting Unknown 03/11/2025 [facility] Cholesterol Level 173.0 MG/DL 03/11/2025 110 - 199 [facility] Triglycerides 178.0 MG/DL Above high normal 03/11/2025 37 - 141 [facility] HGB 15.2 g/dL 03/11/2025 13.4 - 16 [facility] Transferrin Saturation 16.0 % 01/27/2025 15 - 50 [facility] TIBC 391.0 UG/DL 01/27/2025 250 - 450 [facility] Transferrin 266.0 mg/dL 01/27/2025 179 - 371 [facility] Iron Level 64.0 UG/DL 01/27/2025 49 - 181 [facility] Ferritin 103.0 NG/ML 01/27/2025 22 - 275 [facility] Hepatitis C Virus Antibody Non Reac 12/31/2024 - [facility] Ferritin 113.0 NG/ML 12/31/2024 22 - 275 [facility] MCH 26.7 pg Below low normal 12/31/2024 27 - 32.4 [facility] MPV 10.9 fL 12/31/2024 9.6 - 12.5 [facility]HA[facility] HGB 15.2 g/dL 12/31/2024 13.4 - 16 [facility] NRBC (absolute) 0.0 x10 9/L 12/31/2024 R [facility] HCT 46.7 % 12/31/2024 41.2 - 51 [facility] MCHC 32.5 g/dL 12/31/2024 29.5 - 34.2 [facility] Platelet Count 217.0 x10 9/L 12/31/2024 168 - 382 [facility] RBC 5.69 x10 12/L Above high normal 12/31/2024 4.5 - 5 .6 [facility] NRBC (percent) 0.0 % 12/31/2024 - [facility]Edilma PATINOADANYoan RDW 12.7 % 12/31/2024 11.8 - 14.4 [facility] MCV 82.1 fL Below low normal 12/31/2024 85.2 - 100.2 [facility]_HERBOS WBC 5.8 x10 9/L 12/31/2024 4.2 - 10 [facility] Transferrin Saturation 18.0 % 12/18/2024 15 - 50 [facility]MIRAVTAR[facility] Transferrin 277.0 mg/dL 12/18/2024 179 - 371 [facility]_[place] RIAOS TIBC 407.0 UG/DL 12/18/2024 250 - 450 [facility] ROBLEDO Iron Level 75.0 UG/DL 12/18/2024 49 - 181 [facility] PSA Screening Test 1.1 NG/ML 12/18/2024 0 - 4 [facility]NICOLE Comment HGB Elect See Note 10/30/2024 R [facility] Hemoglobin A 96.2 % 10/30/2024 - [facility] Hemoglobin F <1.0 % 10/30/2024 - [facility] Hemoglobin A2 2.8 % 10/30/2024 - [facility] Red Blood Cell Morphology Normal 10/29/2024 [facility] History of Medication Use Medication Directions Dispensed Refills Start Date End Date [facility] carbamide peroxide (DEBROX) 6.5 % otic solution Administer 5 (five) drops into the left ear 2 (two) times a day for 4 days. 12/21/2024 active ferrous sulfate 325 (65 FE) MG tablet Take 1 (one) tablet (325 mg total) by mouth once daily. Take with vitamin C. Avoid taking with calcium, dairy, or antacids. 11/02/2024 active meclizine (ANTIVERT) 25 mg tablet Take 0.5 (half) tablet to 1 (one) tablet (12.5-25 mg total) by mouth 3 (three) times a day as needed (vertigo). 08/04/2024 active rizatriptan (MAXALT-CRIMPING MACHINE OPERATOR FOR METAL) 10 MG disintegrating tablet Dissolve 1 (one) [...] Low mean corpuscular volume (MCV) active EncounterDiagnosisAct [facility] Reactive airway disease active 2024-12-21 ProblemAct [facility] Dizziness active 2024-08-04 ProblemAct [facility] Migraine active 2024-08-04 ProblemAct [facility] Hyperlipidemia active 2024-12-21 ProblemAct [facility] Dysarthria active 2020-03-05 ProblemAct [facility] Need for vaccination active EncounterDiagnosisA ct [facility] Dyshidrotic hand dermatitis active 2024-05-20 ProblemAct [facility] Migraine active 2024-08-04 ProblemAct [facility] Hyperlipidemia active 2024-12-21 ProblemAct [facility] Dizziness active 2024-08-04 ProblemAct [facility] Dysarthria active 2020-03-05 ProblemAct [facility] NU Tension type headache active 2024-12-21 ProblemAct [facility] Glaucoma active 2024-12-21 ProblemAct [facility] Functional urinary incontinence active 2024-12-21 ProblemAct [facility] Iron deficiency active EncounterDiagnosisAct [facility] Other chest pain active EncounterDiagnosisAct [facility] Ulcerative colitis without complications active 2024-12-21 ProblemAct [facility] Immunizations Vaccine Date Source Lot Number Status Influenza, split virus, trivalent, PF 06/03/2025 [facility] [id number] completed Influenza TIV Preservative Free (IM) 05/20/2024 [facility] [id number] completed Influenza, split virus, trivalent, PF 05/20/2024 [facility] [id number] completed Td Preservative Free 05/20/2024 [facility] [id number] comp leted Td Preservative Free 05/20/2024 [facility] [id number] comp leted Influenza Quad Preservative and Antibiotic Free 05/01/2022 [facility] [id number] completed Influenza Quad Preservative and Antibiotic Free 05/01/2022 [facility] [id number] completed PFIZER COVID-19 Vaccine (Gre y), mRNA, LNP-S, PF, 30 mcg/0.3 mL dose 10/07/2021 [facility] [id number] co mpleted PFIZER COVID-19 Vaccine (Gre y), mRNA, LNP-S, PF, 30 mcg/0.3 mL dose 10/07/2021 [facility] [id number] co mpleted PFIZER COVID-19 Vaccine (Pur ple), mRNA, LNP-S, PF, 30 mcg/0.3 mL dose 10/07/2021 [facility] co mpleted PFIZER COVID-19 Vaccine (Pur ple), mRNA, LNP-S, PF, 30 mcg/0.3 mL dose 10/07/2021 [facility] co mpleted Influenza Quadrivalent Prese rvative Free (IM) 04/25/2021 [facility] [id number] completed Influenza Quadrivalent Prese rvative Free (IM) 04/25/2021 [facility] [id number] completed Influenza Quadrivalent Multi Dose 05/12/2019 [facility] [id number] completed Influenza Quadrivalent Multi Dose 05/12/2019 [facility] [id number] completed Influenza Quadrivalent Prese rvative Free (IM) 05/12/2019 [facility] completed Influenza Quadrivalent Prese rvative Free (IM) 05/12/2019 [facility] completed Influenza Quadrivalent Prese rvative Free (IM) 04/20/2019 [facility] completed Influenza Quadrivalent Prese rvative Free (IM) 04/20/2019 [facility] completed Pneumococcal Polysaccharide 09/15/2018 [facility] [id number] completed Pneumococcal Polysaccharide 09/15/2018 [facility] [id number] completed Td Adsorbed [facility] T[facility]/11[facility] completed Td Preservative Free 09/11/2017 [facility] comp leted Td Preservative Free 09/11/2017 [facility]ed Encounters Encounter Type Encounter Reason Primary Diagnosis Location Date Ambulatory Screening for colon cancer Screening for colon cancer [facility] 06/11/2025 Ambulatory Iron deficiency Iron deficiency [facility] 06/03/2025 Ambulatory Iron deficiency Iron deficiency [facility] 06/03/2025 Ambulatory Hyperlipidemia, unspecified hyperlipidemia type Hyperlipidemia, unspecified hyperlipidemia type [facility] 03/11/2025 Ambulatory Iron deficiency Iron deficiency [facility] 01/27/2025 Ambulatory Screening examinatio n for poliomyelitis Screening examination for poliomyelitis [facility] 12/31/2024 Ambulatory Annual Exam Annual Exam [facility] 12/21/2024 Ambulatory Iron deficiency Iron deficiency [facility] 12/18/2024 Ambulatory Special screening fo r malignant neoplasm of prostate Special screening for malignant neoplasm of prostate [facility] 12/18/2024 Ambulatory Abnormal CBC Abnormal CBC [facility] 10/28/2024 Ambulatory Migraine without status migrainosus, not intractable, unspecified migraine type Migraine without status migrainosus, not intractable, unspecified migraine type [facility] 10/23/2024 Care Team Organization Name Specialty Phone Email Start Date End Da te [facility] 12/21/2024 [facility] Primary Care [facility] 11/12/19 [facility] 11/03/2024 [facility] 11/01/2024
== END 2025-06-17 08:57 | disposition home or self-care (01) ==
LOC: HO.HGI 08:04
PROVIDERS: PCP Family Medicine; Visit Provider Internal Medicine Gastroenterology
DX: K21.9 Gastro-esophageal reflux disease without esophagitis (principal); R79.89 Other specified abnormal findings of blood chemistry; K82.4 Cholesterolosis of gallbladder; K52.9 Noninfective gastroenteritis and colitis, unspecified; R10.9 Unspecified abdominal pain; R10.32 Left lower quadrant pain; G89.29 Other chronic pain
CPT/HCPCS: 99213